=== PATIENT | female | born 1995 | race Caucasian/White ===

== ENCOUNTER 2023-09-27 13:09 | Emergency (ER) | payer BC, SELFPAY ==
[2023-09-27 13:42] VITALS: BP 116/71; PULSE 60; RESP 16; TEMP 36.6; O2SAT 100
--- NOTE | 2023-09-27 14:03 | ED.GENADULT ---
HPI - General Adult General Chief complaint: Upper Respiratory Infection Stated complaint: bilateral ear pain,sorethroat Time Seen by Provider: 09/27/23 14:03 Source: patient Mode of arrival: ambulatory Limitations: no limitations History of Present Illness HPI narrative: 28-year-old female patient presents to [facility] with complaints of congestion and sore throat for the past week. Denies fevers, but states has feel warm and has had some body aches. Denies any coughing, shortness of breath, abdominal pain, nausea, vomiting or diarrhea. Patient states she has been taking some [id number] generic Mucinex for her symptoms Related Data Home Medications Medication Instructions Recorded Confirmed Essure See Rx Instructions .Route .COMPLEX 09/27/23 alpha lipoic acid 200 mg tablet 200 mg PO DAILY 09/27/23 09/27/23 Allergies Allergy/AdvReac Type Severity Reaction Status Date / Time ketorolac [From Toradol] AdvReac Intermediate Swelling Verified 09/27/23 13:46 Review of Systems Review of Systems: CONSTITUTIONAL: Denies fever, positive body aches, denies chills, or sweats. EYES: Denies visual changes, redness, or discharge. ENT: positive rhinorrhea, congestion, sore throat, denies otalgia. CARDIOVASCULAR: Denies chest pain, palpitations, or edema. RESPIRATORY: Denies cough or dyspnea. GASTROINTESTINAL: Denies abdominal pain, nausea, vomiting, or diarrhea. GENITOURINARY: Denies dysuria or hematuria. SKIN: Denies rash or itching. MUSCULOSKELETAL: Denies back pain, joint pain, or myalgia. NEUROLOGIC: positive headache, denies numbness, or weakness. PSYCHIATRIC: Denies anxiety or depression. [facility] Family History Family History Other Diabetes mellitus Family history of malignant neoplasm Hypertension Social History Social History Second hand tobacco smoke exposure: No Alcohol intake: never Course Course Emergency Course: portions of this chart have been completed by voice recognition software Level of Care: [facility] Visit Vital Signs Vital signs: Vital Signs Temperature 36.6 C 09/27/23 13:42 Pulse Rate 60 09/27/23 13:42 Respiratory Rate 16 09/27/23 13:42 Blood Pressure 116/71 09/27/23 13:42 Pulse Oximetry 100 09/27/23 13:42 Oxygen Delivery Room Air 09/27/23 13:42 Temperature 36.6 C 09/27/23 13:42 Pulse Rate 60 09/27/23 13:42 Respiratory Rate 16 09/27/23 13:42 Blood Pressure 116/71 09/27/23 13:42 Pulse Oximetry 100 09/27/23 13:42 Oxygen Delivery Room Air 09/27/23 13:42 vital signs reviewed. Medical Decision Making MDM Narrative Medical decision making narrative: Discussed with patient that her rapid strep test today is negative. We will send to the lab for a culture if the culture comes back positive we will call her in an antibiotic at that time. Discussed with patient I do not see any evidence of need for antibiotic today. We will discharge her home with a daily antihistamine and nasal steroid for the congestion and sinus pressure. Differential Diagnosis Differential Diagnosis: Differential diagnosis: Allergic rhinitis, chronic sinusitis, tonsillitis, acute sinusitis, infectious mononucleosis, seasonal influenza, pertussis, diphtheria, meningococcal disease, viral syndrome, viral bronchitis, RSV, COVID-19 Vital Signs Vital Signs: Vital Signs Temperature 36.6 C 09/27/23 13:42 Pulse Rate 60 09/27/23 13:42 Respiratory Rate 16 09/27/23 13:42 Blood Pressure 116/71 09/27/23 13:42 Pulse Oximetry 100 09/27/23 13:42 Oxygen Delivery Room Air 09/27/23 13:42 Temperature 36.6 C 09/27/23 13:42 Pulse Rate 60 09/27/23 13:42 Respiratory Rate 16 09/27/23 13:42 Blood Pressure 116/71 09/27/23 13:42 Pulse Oximetry 100 09/27/23 13:42 Oxygen Delivery Room Air 09/27/23 13:42 Lab Data L
== END 2023-09-27 14:06 | disposition home or self-care (01) ==
PROVIDERS: Emergency Provider Nurse Practitioner Family
DX: J06.9 Acute upper respiratory infection, unspecified (principal)
CPT/HCPCS: 87081; 87880; 99213; G0463

== ENCOUNTER 2024-03-02 15:29 | Outpatient (CLI) | payer BC, SELFPAY ==
--- NOTE | ~2024-03-02 | US_ITS ---
EXAMINATION: US renal BI DATE: 03/02/2024 15:51 INDICATION: Cystinuria TECHNIQUE: Multiple ultrasound grayscale images of the kidneys were obtained. COMPARISON: None. FINDINGS: The right kidney measures 10.5 x 4.2 x 4.1 cm. The left kidney measures 11.7 x 3.9 x 4.5 cm. The kidn eys demonstrate normal echogenicity. Twinkle artifact associated with multiple echogenic stones/calci fications at both kidneys. There is no hydronephrosis in either kidney. The bladder is normal. IMPRESSION: 1. Bilateral nephrolithiasis with no hydronephrosis. Reviewed, dictated and finalized at location A.
--- NOTE | ~2024-03-02 | XR_ITS ---
EXAMINATION: XR abdomen/kub 1V DATE: 03/02/2024 16:05 INDICATION: Cystinuria. TECHNIQUE: A supine view of the abdomen on 2 radiographs was obtained. COMPARISON: None. FINDINGS: There are no dilated loops of bowel. Calcifications in the pelvis are likely phleboliths. A 5 mm calcification overlies left kidney. There are inserts in the expected area of the fallopian tub es. IMPRESSION: 1. 5 mm left kidney stone. Reviewed, dictated and finalized at location E. IMPRESSION: 1. 5 mm left kidney stone.
== END 2024-03-02 15:30 ==
DX: N20.0 Calculus of kidney (principal)
CPT/HCPCS: 74018; 76775

== ENCOUNTER 2024-10-03 11:37 | Observation (INO) | payer BC, SELFPAY ==
--- NOTE | ~2024-10-03 | XR_ITS ---
EXAMINATION: XR abdomen/kub 1V DATE: 10/04/2024 08:01 INDICATION: Left ureteral stone. TECHNIQUE: A supine view of the abdomen on 2 radiographs was obtained. COMPARISON: CT abdomen and pelvis 10/03/2024 FINDINGS: There are no dilated loops of bowel. There are phleboliths in the pelvis. There are inserts in the fallopian tubes. The kidneys are obscured by bowel. There is a 2 mm stone in right kidney. IMPRESSION: 1. 2 mm stone in right kidney. Reviewed, dictated and finalized at location A. L MAKER
--- NOTE | ~2024-10-03 | XR_ITS ---
EXAMINATION: XR retrograde pyelogram LT DATE: 10/04/2024 11:34 INDICATION: Left-sided retrograde pyelogram TECHNIQUE: A total of 49 fluoroscopic images of the abdomen were obtained during procedure performed by Dr. Sher. Radiologist was not present for the imaging or procedure. The amount of fluoroscopy ti me used during this procedure was 0.7 minutes. Total DAP was mGycm^2 COMPARISON: KUB dated 10/04/2024 FINDINGS: Images demonstrate a catheter advanced to the level of the left ureteropelvic junction. The stone pre viously seen at the left ureteropelvic junction is not visualized and may have been extracted. Correl ate with procedure note for further detail. Contrast injection into the right renal collecting system demonstrates persistent mild hydronephrosis but no evident urothelial irregularities. IMPRESSION: 1. Persistent mild left hydronephrosis. Reviewed, dictated and finalized at location A. TIONSHIP BANKER
--- NOTE | ~2024-10-03 | CT_ITS ---
EXAMINATION: CT abdomen pelvis wo con DATE: 10/03/2024 15:20 INDICATION: L flank, LLQ pain TECHNIQUE: Computed tomography (CT) of the abdomen and pelvis was performed without intravenous contr ast. Automated exposure control and iterative reconstruction technique were employed. The dose-length product was 388.60 mGy-cm. COMPARISON: None. FINDINGS: Lower thorax: Unremarkable Liver: Normal. Biliary/Gallbladder: Gallbladder is normal. No bile duct dilation. Pancreas: No mass or duct dilation. Spleen: Scattered granulomatous calcifications. Adrenals:No mass. Kidneys: No suspicious mass. Mild left pelviectasis and caliectasis. 4 mm left UPJ stone. Multiple no nobstructing bilateral renal calcifications measuring up to 7 mm in the left midpole. GI tract: No small or large bowel dilation. Normal appendix. Mesentery/Peritoneum: No ascites, mass, or free air. Retroperitoneum: No mass. Pelvis: Pelvic organs are within normal limits. Bilateral tubal ligation clips. Soft Tissues: Soft tissues and body wall unremarkable. Bones: No acute osseous finding. IMPRESSION: 4 mm left UPJ stone causing mild obstructive uropathy. Reviewed, dictated and finalized at location K. NICS SYSTEMS REPAIRER
[2024-10-03 11:39] VITALS: BP 115/72; PULSE 93; RESP 16; TEMP 36.8; O2SAT 100
--- NOTE | 2024-10-03 12:44 | ED_ITS ---
HPI - Abdominal Pain General Chief Complaint: Abdominal Pain <FLORES Smyth Last Filed: 10/03/24 12:48> Stated Complaint: left lower abd pain <Padma Londono PA-C - Last Filed: 10/03/24 12:48> Time Seen by Provider: 10/03/24 12:44 <FLORES Smyth Last Filed: 10/03/24 12:48> Focused HPI: Patient is a 29y/o female who presents to the ED with c/o L flank/abd pain. Patient has hx of cystinuria with chronic kidney stones. Patient developed worsening pain in her L flank region/lateral abdomen since last night. Pain radiates around to L lower abdomen. Reports N/V related to the pain. Tried taking oxycodone this morning but was unable to keep this down. Is on tamsulosin and oxybutyin. Does not currently have a urologist as she recently moved to the area. Denies dysuria, hematuria, fevers. GENERAL: Mildly uncomfortable-appearing, obese with BMI of 30.2, and in no acute distress. HEAD: Normocephalic, atraumatic. CHEST: Clear to auscultation. ?No respiratory distress. HEART: Regular rate and rhythm.? ABD: TTP in LLQ, L lower lateral abdomen. NEURO: ?Alert and oriented x3. Patient screened in triage and initial orders placed.? ?Additional care and disposition to be based upon?diagnostic testing and treatment. <Padma Londono PA-C - Last Filed: 10/03/24 12:48> Source: patient <Padma Londono PA-C - Last Filed: 10/03/24 12:48> Mode of arrival: ambulatory <FLORES Smyth Last Filed: 10/03/24 12:48> Limitations: no limitations <FLORES Smyth Last Filed: 10/03/24 12:48> History of Present Illness HPI narrative: Agree with above. <Tata Dumont MD - Last Filed: 10/03/24 20:40> Related Data Home Medications: Home Medications Medication Instructions Recorded Confirmed Essure See Rx Instructions .Route .COMPLEX 09/27/23 10/03/24 alpha lipoic acid 200 mg tablet 1,200 mg PO DAILY 09/27/23 10/03/24 fluticasone propionate 50 2 spray intranasal DAILY PRN 10/03/24 10/03/24 mcg/actuation nasal allergies spray,suspension (Flonase Allergy Relief) <Padma Londono PA-C - Last Filed: 10/03/24 12:48> Allergies/Adverse Reactions: Allergies Allergy/AdvReac Type Severity Reaction Status Date / Time ketorolac [From Toradol] AdvReac Intermediate Swelling Verified 10/03/24 20:12 <Padma Londono PA-C - Last Filed: 10/03/24 12:48> Review of Systems Review of Systems: All systems reviewed & are unremarkable except as noted in HPI and below <Tata Dumont MD - Last Filed: 10/03/24 20:40> [facility] Past Medical History Medical History: Medical History (Updated 10/03/24 @ 18:45 by Tata Dumont MD) Cystinuria Kidney stones <Padma Londono PA-C - Last Filed: 10/03/24 12:48> Surgical History Surgical History: Surgical History (Updated 10/03/24 @ 18:15 by Chiquita Chambers PA-C) History of cystoscopy History of ureter stent <Padma Londono PA-C - Last Filed: 10/03/24 12:48> Family History Family History: Family History Other Diabetes mellitus Family history of malignant neoplasm Hypertension <Padma Londono PA-C - Last Filed: 10/03/24 12:48> Social History Social History: Social History (Updated 10/03/24 @ 18:16 by Chiquita Chambers PA-C) Social History: Surrogate medical decision maker: Code status: Full code. Years smoked: 2 Smoking status: Former smoker Tobacco type: e-cigarettes/vaping Second hand tobacco smoke exposure: No Alcohol intake: never Substance use: never Do You Feel Safe in your Home?: Yes Lack of Transportation: No Lack of Food: Sometimes True Current Housing: I Have Housing Concerned About Future Housing: No Difficulty Paying Gas/Electric Bills: No Difficulty Paying for Meds: No Currently Unemployed: No Education: Associate Degree Difficulty w/ Childcare or Family Care: No Spiritual care concerns: No <Padma Londono PA-C - Last Filed: 10/03/24 12:48> Exam Narrative: GENERAL: distressed 2/2 pain HEAD: Normocephalic, atraumatic. EYES: PERRLA and EOMI. ENT: Grossly unremarkable NECK: Supple. CHEST: No respiratory distress. HEART: Regular rate and rhythm ABDOMEN: Soft, +LLQ tenderness w/o guarding or rebound EXTREMITIES: Normal range of motion SKIN: Warm, dry, no rash. NEURO: Alert and oriented x3. PSYCH: Normal mood and affect. <Tata Dumont MD - Last Filed: 10/03/24 20:40> Course Vital Signs Vital signs: Vital Signs Temperature 98.2 F 10/03/24 11:39 Pulse Rate 93 10/03/24 11:39 Respiratory Rate 16 10/03/24 11:39 Blood Pressure 115/72 10/03/24 11:39 Pulse Oximetry 100 10/03/24 11:39 Temperature 98.2 F 10/03/24 20:33 Pulse Rate 92 10/03/24 20:33 Respiratory Rate 20 10/03/24 20:33 Blood Pressure 115/79 10/03/24 20:33 Pulse Oximetry 99 10/03/24 20:33 <Padma Londono PA-C - Last Filed: 10/03/24 12:48> Vital Signs Temperature 98.2 F 10/03/24 11:39 Pulse Rate 93 10/03/24 11:39 Respiratory Rate 16 10/03/24 11:39 Blood Pressure 115/72 10/03/24 11:39 Pulse Oximetry 100 10/03/24 11:39 Temperature 98.2 F 10/03/24 20:33 Pulse Rate 92 10/03/24 20:33 Respiratory Rate 20 10/03/24 20:33 Blood Pressure 115/79 10/03/24 20:33 Pulse Oximetry 99 10/03/24 20:33 <Tata Dumont MD - Last Filed: 10/03/24 20:40> MDM - Abdominal Pain MDM Narrative Medical decision making narrative: MSE by DULCE in triage. <Padma Londono PA-C - Last Filed: 10/03/24 12:48> MSE by DULCE in triage. 29-year-old female presenting with flank pain. Vitals are stable. Blood work is unremarkable. UA with RBCs but no evidence of infection. CT abdomen pelvis shows a left-sided 4 mm UPJ stone. Patient states that the Dilaudid has been helping at least temporarily. She has a complicated history given she has cystinuria. Feel she would benefit from admission for pain management and definitive treatment. She is agreeable this plan. I spoke with Urology who recommends NPO at midnight. I spoke with Medicine who has accepted her for admission. <Tata Dumont MD - Last Filed: 10/03/24 20:40> Differential Diagnosis Differential diagnosis: Likely abdominal pain, calculus of kidney and other (UTI, pyelonephritis ) <Tata Dumont MD - Last Filed: 10/03/24 20:40> Medical Records Attestation: I reviewed the patient's medical records. <Tata Dumont MD - Last Filed: 10/03/24 20:40> Lab Data Attestation: I reviewed the patient's lab results. <Tata Dumont MD - Last Filed: 10/03/24 20:40> Result diagrams: 10/03/24 13:14 10/03/24 13:14 <Padma Londono PA-C - Last Filed: 10/03/24 12:48> Labs: Lab Results 10/03/24 10/03/24 10/03/24 Range/Units 13:14 13:40 13:41 WBC 8.3 (4.5-10.0) K/mm3 RBC 5.07 (4.2-5.4) M/mm3 Hgb 14.9 (12.0-15.0) g/dL Hct 45.3 (37.0-47.0) % MCV 89.3 (80-100) fl MCH 29.4 (26-34) pg MCHC 32.9 (32-36) g/dl RDW 12.9 (11.5-14.5) % Plt Count 270 (150-375) k/mm3 MPV 10.8 H (7.4-10.4) fl Immature Gran % (Auto) 0.2 (0-0.5) % Neut % (Auto) 62.8 (45.5-73.1) % Lymph % (Auto) 30.7 (18.3-44.2) % [place] % (Auto) 4.1 (2.6-8.5) % Eos % (Auto) 1.8 (0-4.4) % Baso % (Auto) 0.4 (0.2-1.2) % Lymph # (Auto) 2.54 (0.9-3.2) K/mm3 [place] # (Auto) 0.3 (0.1-0.6) K/mm3 Eos # (Auto) 0.2 (0-0.3) K/mm3 Baso # (Auto) 0.0 (0.0-0.1) K/mm3 Abs Immat Gran (auto) 0.02 (0.00-0.031) K/mm3 Absolute Neuts (auto) 5.2 (1.3-6.7) K/mm3 Absolute Nucleated RBC 0.000 (0.0-0.012) K/mm3 Nucleated RBC % 0.0 (0.0-0.2) % Sodium 139 (137-145) mmol/L Potassium 3.8 (3.4-5.0) mmol/L Chloride 103 (98-107) mmol/L Carbon Dioxide 24 (22-30) mmol/L Anion Gap 12 (4-12) mmol/L BUN 17 (7-17) mg/dL Creatinine 0.90 (0.7-1.0) mg/dL Estim Creat Clear Calc 76 ml/min Estimated GFR > 60 (59 - ) Glucose 100 (65-110) mg/dL Calcium 9.7 (8.4-10.2) mg/dL Total Bilirubin 0.7 (0.2-1.3) mg/dL AST 24 (14-36) U/L ALT 16 (6-35) U/L Alkaline Phosphatase 79 (38-126) U/L Total Protein 9.0 H (6.3-8.2) g/dL Albumin 4.8 (3.5-5.1) g/dL Urine Color Yellow (Yellow) Urine Appearance Cloudy H (Clear) Urine pH 7.0 (5.0-9.0) Ur Specific [place] 1.025 (1.001-1.035) Urine Protein 1+ H (Negative) mg/dL Urine Glucose (UA) Negative (Negative) mg/dL Urine Ketones Trace H (Negative) mg/dL Ur Blood (Man) 3+ H (Negative) Urine Nitrate Negative (Negative) Urine Bilirubin Negative (Negative) Urine Urobilinogen 1.0 (<2.0) mg/dL Leukocyte Esterase Rfl Trace H (Negative) RACHEL/UL Urine RBC >100 H (0-2) /hpf Urine WBC 0-5 (0-3) /hpf Ur Squamous Epith Cells Occasional (Few) /hpf Urine Bacteria Rare /hpf Urine Casts 0-2 Urine Test Negative <Padma Londono PA-C - Last Filed: 10/03/24 12:48> Lab Results 10/03/24 10/03/24 10/03/24 Range/Units 13:14 13:40 13:41 WBC 8.3 (4.5-10.0) K/mm3 RBC 5.07 (4.2-5.4) M/mm3 Hgb 14.9 (12.0-15.0) g/dL Hct 45.3 (37.0-47.0) % MCV 89.3 (80-100) fl MCH 29.4 (26-34) pg MCHC 32.9 (32-36) g/dl RDW 12.9 (11.5-14.5) % Plt Count 270 (150-375) k/mm3 MPV 10.8 H (7.4-10.4) fl Immature Gran % (Auto) 0.2 (0-0.5) % Neut % (Auto) 62.8 (45.5-73.1) % Lymph % (Auto) 30.7 (18.3-44.2) % [place] % (Auto) 4.1 (2.6-8.5) % Eos % (Auto) 1.8 (0-4.4) % Baso % (Auto) 0.4 (0.2-1.2) % Lymph # (Auto) 2.54 (0.9-3.2) K/mm3 [place] # (Auto) 0.3 (0.1-0.6) K/mm3 Eos # (Auto) 0.2 (0-0.3) K/mm3 Baso # (Auto) 0.0 (0.0-0.1) K/mm3 Abs Immat Gran (auto) 0.02 (0.00-0.031) K/mm3 Absolute Neuts (auto) 5.2 (1.3-6.7) K/mm3 Absolute Nucleated RBC 0.000 (0.0-0.012) K/mm3 Nucleated RBC % 0.0 (0.0-0.2) % Sodium 139 (137-145) mmol/L Potassium 3.8 (3.4-5.0) mmol/L Chloride 103 (98-107) mmol/L Carbon Dioxide 24 (22-30) mmol/L Anion Gap 12 (4-12) mmol/L BUN 17 (7-17) mg/dL Creatinine 0.90 (0.7-1.0) mg/dL Estim Creat Clear Calc 76 ml/min Estimated GFR > 60 (59 - ) Glucose 100 (65-110) mg/dL Calcium 9.7 (8.4-10.2) mg/dL Total Bilirubin 0.7 (0.2-1.3) mg/dL AST 24 (14-36) U/L ALT 16 (6-35) U/L Alkaline Phosphatase 79 (38-126) U/L Total Protein 9.0 H (6.3-8.2) g/dL Albumin 4.8 (3.5-5.1) g/dL Urine Color Yellow (Yellow) Urine Appearance Cloudy H (Clear) Urine pH 7.0 (5.0-9.0) Ur Specific [place] 1.025 (1.001-1.035) Urine Protein 1+ H (Negative) mg/dL Urine Glucose (UA) Negative (Negative) mg/dL Urine Ketones Trace H (Negative) mg/dL Ur Blood (Man) 3+ H (Negative) Urine Nitrate Negative (Negative) Urine Bilirubin Negative (Negative) Urine Urobilinogen 1.0 (<2.0) mg/dL Leukocyte Esterase Rfl Trace H (Negative) RACHEL/UL Urine RBC >100 H (0-2) /hpf Urine WBC 0-5 (0-3) /hpf Ur Squamous Epith Cells Occasional (Few) /hpf Urine Bacteria Rare /hpf Urine Casts 0-2 Urine Test Negative <Tata Dumont MD - Last Filed: 10/03/24 20:40> Imaging Data Radiologist's impression: ITS Impressions Abdomen/Pelvis CT 10/03/24 15:21 IMPRESSION: 4 mm left UPJ stone causing mild obstructive uropathy. <Padma Londono PA-C - Last Filed: 10/03/24 12:48> ITS Impressions Abdomen/Pelvis CT 10/03/24 15:21 IMPRESSION: 4 mm left UPJ stone causing mild obstructive uropathy. <Tata Dumont MD - Last Filed: 10/03/24 20:40> Critical Care Time Critical Care Time Critical Care Time: No <Tata Dumont MD - Last Filed: 10/03/24 20:40> Discharge Plan Discharge Clinical Impression: Cystinuria, Left ureteral calculus <Padma Londono PA-C - Last Filed: 10/03/24 12:48> Patient Disposition: Still a Patient <Padma Londono PA-C - Last Filed: 10/03/24 12:48> Condition: Stable <Padma Londono PA-C - Last Filed: 10/03/24 12:48>
[2024-10-03] MEDS: HYDROcodone/acetaminophen (*CRX) 5-325 MG TABLET 1 TAB PO (13:08)
[2024-10-03] MEDS: ONDANSETRON INJ 4 MG/2 ML VIAL IV PUSH ×2 (13:12→17:42)
[2024-10-03] MEDS: SODIUM CHLORIDE 0.9% IV 1,000 ML 999 ML IV CONT ×2 (13:12→17:42)
[2024-10-03 13:19] LABS: Basophils Percent Auto 0.4 % (0.2-1.2); Eosinophils Absolute Auto 0.2 K/mm3 (0-0.3); Eosinophils Percent Auto 1.8 % (0-4.4); Hematocrit 45.3 % (37.0-47.0); Hemoglobin 14.9 g/dL (12.0-15.0); Immature Granulocyte Absolute 0.02 K/mm3 (0.00-0.031); Immature Granulocyte Percent A 0.2 % (0-0.5); Lymphocytes Absolute Auto 2.54 K/mm3 (0.9-3.2); Lymphocytes Percent Auto 30.7 % (18.3-44.2); Mean Corpuscular HGB Conc 32.9 g/dl (32-36); Mean Corpuscular Hemoglobin 29.4 pg (26-34); Mean Corpuscular Volume 89.3 fl (80-100); Mean Platelet Volume 10.8 fl (7.4-10.4); Monocytes Absolute Auto 0.3 K/mm3 (0.1-0.6); Monocytes Percent Auto 4.1 % (2.6-8.5); Neutrophils Absolute Auto 5.2 K/mm3 (1.3-6.7); Neutrophils Percent Auto 62.8 % (45.5-73.1); Platelet Count Result 270 k/mm3 (150-375); Red Blood Count 5.07 M/mm3 (4.2-5.4); Red Cell Distribution Width 12.9 % (11.5-14.5); White Blood Count 8.3 K/mm3 (4.5-10.0)
[2024-10-03 13:33] LABS: Alanine Aminotransferase 16 U/L (6-35); Albumin Level 4.8 g/dL (3.5-5.1); Alkaline Phosphatase 79 U/L (38-126); Anion Gap 12 mmol/L (4-12); Aspartate Amino Transferase 24 U/L (14-36); Bilirubin,Total 0.7 mg/dL (0.2-1.3); Blood Urea Nitrogen 17 mg/dL (7-17); Calcium 9.7 mg/dL (8.4-10.2); Carbon Dioxide 24 mmol/L (22-30); Chloride 103 mmol/L (98-107); Estimated CRCL calculation 76 ml/min; Estimated Glomerular Filt Rate > 60; Glucose 100 mg/dL (65-110); Potassium 3.8 mmol/L (3.4-5.0); Sodium 139 mmol/L (137-145)
[2024-10-03 13:52] LABS: Add Urine Microscopic? YES; Appearance Urine Cloudy (Clear); Bacteria Urine Rare /hpf; Bilirubin Urine Negative (Negative); Blood Urine 3+ (Negative); Color Urine Yellow (Yellow); Glucose Urine UA Negative (Negative); Ketones Urine Trace mg/dL (Negative); Leukocyte Esterase Ur Trace LEU/UL (Negative); Nitrate Urine Negative (Negative); Non Pathogenic Casts 0-2; Protein Urine 1+ mg/dL (Negative); RBC Urine >100 /hpf (0-2); Specific Grav Ur 1.025 (1.001-1.035); Squamous Epithelial Cell Urine Occasional /hpf (Few); WBC Urine 0-5 /hpf (0-3)
[2024-10-03] MEDS: HYDROmorphone HCL INJ (*CRX) 1 MG/ML SYR 0.5 MG IV PUSH ×3 (14:34→19:24)
[2024-10-03 15:07] LABS: Pregnancy On Board Control Positive; Urine Pregnancy Test Negative
[2024-10-03 16:33] VITALS: BP 123/83; PULSE 93; RESP 19; O2SAT 97
--- NOTE | 2024-10-03 18:15 | P.HP_ITS ---
H&P: HPI History of Present Illness Date/Time: 10/03/24 19:00 Chief Complaint: Left flank pain. Narrative: This is a very pleasant 29-year-old female with cystinuria and history of multiple kidney stones who presented to the emergency department for evaluation of left-sided flank pain.? The patient provides the following history. She just recently moved to the area from [place] and does not yet have an established urologist. Last evening she developed fairly sudden onset of colicky, left-sided flank pain similar to prior kidney stones. The pain radiates down into the lower abdomen/groin. Associated symptoms include nausea and vomiting. She attempted to take oxycodone this morning but was unable to keep it down. No fever, chills, sweats, dysuria, or hematuria. In the ED: She was afebrile on arrival with stable vital signs. CMP and CBC were pretty unremarkable. Urinalysis was positive for 1+ protein, trace ketones, 3+ blood, trace leukocyte esterase, greater than 100 RBC, and rare bacteria. CT scan of the abdomen and pelvis showed a 4 mm left UVJ stone causing mild obstructive uropathy. She is being admitted in this setting for pain control and urology consultation. Review of Systems Review of Systems: 12 systems were reviewed and are negativ e except for as per HPI. [facility] Past Medical History Medical History (Updated 10/03/24 @ 21:32 by Chiquita Chambers PA-C) Cystinuria Depression with anxiety Heart failure Kidney stones Surgical History Surgical History (Updated 10/03/24 @ 21:32 by Chiquita Chambers PA-C) History of cystoscopy History of removal of calculus of renal pelvis through percutaneous nephrostomy History of ureter stent Family History Family History Other Diabetes mellitus Family history of malignant neoplasm Hypertension Social History Social History (Updated 10/03/24 @ 21:31 by Chiquita Chambers PA-C) Social History: Surrogate medical decision maker: VIRAJ Lange (fianc?) or Radha Kayden (grandmother). Code status: Full code. Years smoked: 2 Smoking status: Former smoker Tobacco type: e-cigarettes/vaping Second hand tobacco smoke exposure: No Alcohol intake: never Substance use: never Do You Feel Safe in your Home?: Yes Lack of Transportation: No Lack of Food: Sometimes True Current Housing: I Have Housing Concerned About Future Housing: No Difficulty Paying Gas/Electric Bills: No Difficulty Paying for Meds: No Currently Unemployed: No Education: Associate Degree Difficulty w/ Childcare or Family Care: No Additional living arrangements comments: Lives in [place] with baljinder and 12-year-old daughter. Spiritual care concerns: No Meds Home Medications and Allergies Home Medications Medication Instructions Recorded Confirmed Type Essure See Rx Instructions .Route .COMPLEX 09/27/23 10/03/24 History alpha lipoic acid 200 mg tablet 1,200 mg PO DAILY 09/27/23 10/03/24 History fluticasone propionate 50 2 spray intranasal DAILY PRN 10/03/24 10/03/24 History mcg/actuation nasal allergies spray,suspension (Flonase Allergy Relief) Allergies Allergy/AdvReac Type Severity Reaction Status Date / Time ketorolac [From Toradol] AdvReac Intermediate Swelling Verified 10/03/24 20:12 Vital Signs Vital Signs - 24 hr 10/03/24 11:39 10/03/24 16:33 Temperature 98.2 F Pulse Rate 93 93 Respiratory Rate 16 19 Blood Pressure 115/72 123/83 Pulse Oximetry 100 97 Exam Narrative: General: Well-developed female sitting up in bed in moderate pain. Weight: 76.7 kg. BMI: 30.9. HEENT: PERRL, EOMI. Sclera anicteric. Tacky mucous membranes. Neck: Supple. Respiratory: Lungs are clear to auscultation bilaterally. Cardiovascular: Regular rate and rhythm with S1-S2. Gastrointestinal: Abdomen is soft and nondistended with positive bowel sounds. She is tender to palpation over the left flank and the left lower quadrant. Skin: Warm and dry. Extremities: No cyanosis, clubbing, or edema. Radial and pedal pulses intact. Neurological: Alert. Cranial nerves 2-12 are grossly intact. No gross focal deficits to casual conversation. Psychiatric: Pleasant and cooperative with normal mood and affect. Judgment and insight intact. H&P: Results Labs Labs: Short CBC 10/03/24 Range/Units 13:14 WBC 8.3 (4.5-10.0) K/mm3 Hgb 14.9 (12.0-15.0) g/dL Hct 45.3 (37.0-47.0) % Plt Count 270 (150-375) k/mm3 BMP 10/03/24 13:14 Sodium 139 Potassium 3.8 Chloride 103 Carbon Dioxide 24 BUN 17 Creatinine 0.90 Glucose 100 Calcium 9.7 Liver Function 10/03/24 Range/Units 13:14 Total Bilirubin 0.7 (0.2-1.3) mg/dL AST 24 (14-36) U/L ALT 16 (6-35) U/L Alkaline Phosphatase 79 (38-126) U/L Albumin 4.8 (3.5-5.1) g/dL Urine 10/03/24 Range/Units 13:41 Urine Color Yellow (Yellow) Urine Appearance Cloudy H (Clear) Urine pH 7.0 (5.0-9.0) Ur Specific [place] 1.025 (1.001-1.035) Urine Protein 1+ H (Negative) mg/dL Urine Glucose (UA) Negative (Negative) mg/dL Impressions Abdomen/Pelvis CT 10/03/24 15:21 IMPRESSION: 1. 4 mm left UPJ stone causing mild obstructive uropathy. Assessment and Plan Assessment and plan (1) Left ureteral calculus: Code(s): N20.1 - Calculus of ureter Status: Acute (2) Obstructive uropathy: Code(s): N13.9 - Obstructive and reflux uropathy, unspecified Status: Acute (3) Cystinuria: Code(s): E72.01 - Cystinuria Status: Acute Plan The patient presented to the emergency department for evaluation of colicky left-sided flank pain since last evening as detailed in HPI. Labs, imaging, EKG, and all reports were personally reviewed. She has cystinuria with history of frequent kidney stones and CT scan today showed a 4 mm UPJ stone with mild obstructive uropathy. She is being admitted overnight for pain control.? Analgesics and antiemetics are available as needed. Dr. Ybarra plans for cystoscopy tomorrow and she will be NPO after midnight. Vital signs were reviewed and they are stable. Her home medications will be reviewed and resumed as appropriate. Findings and treatment plan were discussed with the patient. Questions were solicited and answered to satisfaction. The patient's medical management will be taken over by the hospitalist team in a.m. Quality VTE Prophylaxis VTE prophylaxis: mechanical ordered If No VTE Prophylaxis Answer both mechanical and pharmacologic: Reason no pharmacologic proph: medical contraindication (plans for cystoscopy tomorrow) The patient has been admitted under observation status. Hospitalist MIPS Advance Care Plan I have confirmed that the patient's Advanced Care Plan is present, code status is documented, or surrogate decision maker is listed in patient medical record.: Yes Medication Reconciliation I have utilized all available resources to obtain, update and review the patients current medications (includes all prescriptions, OTC, herbals, ca nnabis, and nutritional supplements).: Yes
[2024-10-03 19:33] VITALS: BP 120/75; PULSE 85; RESP 16; TEMP 36.4; O2SAT 98
[2024-10-03 20:06] VITALS: BMI 30.9
--- NOTE | 2024-10-03 20:07 | ADMGEN ---
This patient, Yesenia Yip, was admitted to [facility] Surg Room 307-01. Patient/family oriented to hospital policies and general routines including ID bracelet, bed and alarms, visiting hours, pain management, procedures, bathroom and other care routines, personal items, smoking policy, room service/diet, and visiting hours. Information on how to activate the Rapid Response Team has been discussed. Patient/Family are encouraged to report perceived risks to care and to ask questions if they do not understand what they are told or what they should do.
--- NOTE | 2024-10-03 20:16 | ADMGEN ---
This patient, Yesenia Yip, was admitted to [facility] Surg Room 307-01. Patient/family oriented to hospital policies and general routines including ID bracelet, bed and alarms, visiting hours, pain management, procedures, bathroom and other care routines, personal items, smoking policy, room service/diet, and visiting hours. Information on how to activate the Rapid Response Team has been discussed. Patient/Family are encouraged to report perceived risks to care and to ask questions if they do not understand what they are told or what they should do.
[2024-10-03 20:33] VITALS: BP 115/79; PULSE 92; RESP 20; TEMP 36.8; O2SAT 99
[2024-10-03] MEDS: PROMETHAZINE HCL 25 MG/ML AMPUL 12.5 MG IV PUSH (20:41)
[2024-10-04] VITALS (10 sets, daily range): BP systolic 98–116; BP diastolic 52–85; PULSE 61–108; RESP 7–20; TEMP 36.4–37.1; O2SAT 94–100
[2024-10-04] MEDS: HYDROmorphone HCL INJ (*CRX) 1 MG/ML SYR 0.5 MG IV PUSH ×4 (04:26→15:12)
--- NOTE | 2024-10-04 06:32 | WPDURCON ---
Assessment and Plan Assessment and plan (1) Left ureteral calculus: Code(s): N20.1 - Calculus of ureter Status: Acute (2) Kidney stones: Code(s): N20.0 - Calculus of kidney Status: Acute Assessment and Plan: Patient with a painful obstructing 4 mm left proximal ureteral stone. Plan cystoscopy left ureteroscopy stone extraction. Patient is traveling for the and would like to avoid placement of ureteral stent, if possible. Our efforts today will be focused stone simply removing the obstructing stone without treatment of the nonobstructing stone in her left kidney. 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 She presents with left flank pain. Imaging demonstrates an obstructing 4 mm left proximal ureteral stone. Additionally she has a 5-6 mm nonobstructing stone in the left midpole calyx and a tiny stone in her right kidney. She was admitted for hydration analgesics. She denies fevers chills or gross hematuria. Review of Systems Review of Systems: All systems reviewed & are unremarkable except as noted in HPI and below PMFSH Past Medical History Medical History (Updated 10/03/24 @ 21:32 by Chiquita Chambers PA-C) Cystinuria Depression with anxiety Heart failure Kidney stones Surgical History Surgical History (Updated 10/03/24 @ 21:32 by Chiquita Chambers PA-C) History of cystoscopy History of removal of calculus of renal pelvis through percutaneous nephrostomy History of ureter stent Family History Family History Other Diabetes mellitus Family history of malignant neoplasm Hypertension Social History Social History (Updated 10/03/24 @ 21:31 by Chiquita Chambers PA-C) Social History: Surrogate medical decision maker: VIRAJ Lange (fianc?) or Radha Kayden (grandmother). Code status: Full code. Years smoked: 2 Smoking status: Former smoker Tobacco type: e-cigarettes/vaping Second hand tobacco smoke exposure: No Alcohol intake: never Substance use: never Do You Feel Safe in your Home?: Yes Lack of Transportation: No Lack of Food: Sometimes True Current Housing: I Have Housing Concerned About Future Housing: No Difficulty Paying Gas/Electric Bills: No Difficulty Paying for Meds: No Currently Unemployed: No Education: Associate Degree Difficulty w/ Childcare or Family Care: No Additional living arrangements comments: Lives in [place] with baljinder and 12-year-old daughter. Spiritual care concerns: No Meds Home Medications and Allergies Home Medications Medication Instructions Recorded Confirmed Type Essure See Rx Instructions .Route .COMPLEX 09/27/23 10/03/24 History alpha lipoic acid 200 mg tablet 1,200 mg PO DAILY 09/27/23 10/03/24 History fluticasone propionate 50 2 spray intranasal DAILY PRN 10/03/24 10/03/24 History mcg/actuation nasal allergies spray,suspension (Flonase Allergy Relief) Allergies Allergy/AdvReac Type Severity Reaction Status Date / Time ketorolac [From Toradol] AdvReac Intermediate Swelling Verified 10/03/24 20:12 Vital Signs Vital Signs - 24 hr 10/03/24 11:39 10/03/24 16:33 10/03/24 19:33 Temperature 98.2 F 97.5 F L Pulse Rate 93 93 85 Respiratory Rate 16 19 16 Blood Pressure 115/72 123/83 120/75 Pulse Oximetry 100 97 98 Oxygen Delivery 10/03/24 20:33 10/03/24 22:04 10/04/24 04:17 Temperature 98.2 F 97.8 F Pulse Rate 92 88 Respiratory Rate 20 20 Blood Pressure 115/79 98/52 L Pulse Oximetry 99 94 Oxygen Delivery Room Air Exam Const: General: no acute distress Resp: Effort & Inspection: normal respiratory effort GI: Inspection: non-distended GI Palp: No abdominal tenderness and No Guarding due to palpation present (GI) Auscultation: normal bowel sounds Results Labs 10/03/24 13:14 10/03/24 13:14 Labs: Short CBC 10/03/24 Range/Units 13:14 WBC 8.3 (4.5-10.0) K/mm3 Hgb 14.9 (12.0-15.0) g/dL Hct 45.3 (37.0-47.0) % Plt Count 270 (150-375) k/mm3 BMP 10/03/24 13:14 Sodium 139 Potassium 3.8 Chloride 103 Carbon Dioxide 24 BUN 17 Creatinine 0.90 Glucose 100 Calcium 9.7 Liver Function 10/03/24 Range/Units 13:14 Total Bilirubin 0.7 (0.2-1.3) mg/dL AST 24 (14-36) U/L ALT 16 (6-35) U/L Alkaline Phosphatase 79 (38-126) U/L Albumin 4.8 (3.5-5.1) g/dL Urine 10/03/24 Range/Units 13:41 Urine Color Yellow (Yellow) Urine Appearance Cloudy H (Clear) Urine pH 7.0 (5.0-9.0) Ur Specific [place] 1.025 (1.001-1.035) Urine Protein 1+ H (Negative) mg/dL Urine Glucose (UA) Negative (Negative) mg/dL
--- NOTE | 2024-10-04 09:05 | WPDHPUPDATE1 ---
History and Physical Update Update Date/Time: 10/04/24 09:05 History and Physical has been reviewed, including an updated exam of the patient. There are NO changes in the patient's condition. Risks, benefits, and alternatives have been discussed and questions answered. Patient agrees to proceed with procedure.
[2024-10-04 09:11] LABS: Basophils Absolute Auto 0.1 K/mm3 (0.0-0.1); Basophils Percent Auto 0.5 % (0.2-1.2); Eosinophils Absolute Auto 0.1 K/mm3 (0-0.3); Eosinophils Percent Auto 0.8 % (0-4.4); Hematocrit 35.6 % (37.0-47.0); Hemoglobin 11.4 g/dL (12.0-15.0); Immature Granulocyte Absolute 0.05 K/mm3 (0.00-0.031); Immature Granulocyte Percent A 0.5 % (0-0.5); Lymphocytes Absolute Auto 2.75 K/mm3 (0.9-3.2); Lymphocytes Percent Auto 26.9 % (18.3-44.2); Mean Corpuscular Hemoglobin 29.2 pg (26-34); Mean Platelet Volume 10.2 fl (7.4-10.4); Monocytes Absolute Auto 0.6 K/mm3 (0.1-0.6); Monocytes Percent Auto 5.9 % (2.6-8.5); Neutrophils Absolute Auto 6.7 K/mm3 (1.3-6.7); Neutrophils Percent Auto 65.4 % (45.5-73.1); Platelet Count Result 257 k/mm3 (150-375); Red Blood Count 3.91 M/mm3 (4.2-5.4); White Blood Count 10.2 K/mm3 (4.5-10.0)
[2024-10-04 09:28] LABS: Alanine Aminotransferase 12 U/L (6-35); Albumin Level 3.5 g/dL (3.5-5.1); Alkaline Phosphatase 60 U/L (38-126); Anion Gap 5 mmol/L (4-12); Aspartate Amino Transferase 21 U/L (14-36); Bilirubin,Total 0.6 mg/dL (0.2-1.3); Blood Urea Nitrogen 15 mg/dL (7-17); Calcium 8.7 mg/dL (8.4-10.2); Carbon Dioxide 28 mmol/L (22-30); Chloride 106 mmol/L (98-107); Estimated CRCL calculation 77 ml/min; Estimated Glomerular Filt Rate > 60; Glucose 81 mg/dL (65-110); Potassium 3.7 mmol/L (3.4-5.0); Sodium 139 mmol/L (137-145)
--- NOTE | 2024-10-04 09:50 | PC.NURSE ---
To preop via wheelchair.
[2024-10-04] MEDS: LACTATED RINGERS 1,000 ML 30 ML IV CONT (10:38)
--- NOTE | 2024-10-04 10:41 | WPDANESEPPF ---
Anes - Initial Pre Proc Eval Procedure: Operation Date: 10/04/24 11:00 Proposed Procedures p Cystoscopy,Left Retrograde Pyelogram, Left Ureteroscopy, Left Stone Extraction,Possible Holmium Laser, Possible Stent Placement - Narciso Sher MD Date/Time: 10/04/24 10:41 Surgeon: Luis Chery MD Pre Op Diagnosis: Left UPJ Stone Patient Data Age: 29 Gender: F Height: 1.57 m Weight: 76.7 kg Last Vital Signs Temp 97.8 F 10/04/24 10:10 Pulse 61 10/04/24 10:10 Resp 16 10/04/24 10:10 BP 108/52 L 10/04/24 10:10 Pulse Ox 95 10/04/24 10:10 O2 Del Method Room Air 10/04/24 08:20 Allergies Allergy/AdvReac Type Severity Reaction Status Date / Time ketorolac [From Toradol] AdvReac Intermediate Swelling Verified 10/03/24 20:12 Home Medications Medication Instructions Recorded Confirmed Type Essure See Rx Instructions .Route .COMPLEX 09/27/23 10/03/24 History alpha lipoic acid 200 mg tablet 1,200 mg PO DAILY 09/27/23 10/03/24 History fluticasone propionate 50 2 spray intranasal DAILY PRN 10/03/24 10/03/24 History mcg/actuation nasal allergies spray,suspension (Flonase Allergy Relief) Laboratory Tests 10/03/24 10/03/24 10/03/24 13:14 13:40 13:41 WBC 8.3 K/mm3 (4.5-10.0) RBC 5.07 M/mm3 (4.2-5.4) Hgb 14.9 g/dL (12.0-15.0) Hct 45.3 % (37.0-47.0) MCV 89.3 fl (80-100) MCH 29.4 pg (26-34) MCHC 32.9 g/dl (32-36) RDW 12.9 % (11.5-14.5) Plt Count 270 k/mm3 (150-375) MPV 10.8 H fl (7.4-10.4) Immature Gran % (Auto) 0.2 % (0-0.5) Neut % (Auto) 62.8 % (45.5-73.1) Lymph % (Auto) 30.7 % (18.3-44.2) [place] % (Auto) 4.1 % (2.6-8.5) Eos % (Auto) 1.8 % (0-4.4) Baso % (Auto) 0.4 % (0.2-1.2) Lymph # (Auto) 2.54 K/mm3 (0.9-3.2) [place] # (Auto) 0.3 K/mm3 (0.1-0.6) Eos # (Auto) 0.2 K/mm3 (0-0.3) Baso # (Auto) 0.0 K/mm3 (0.0-0.1) Abs Immat Gran (auto) 0.02 K/mm3 (0.00-0.031) Absolute Neuts (auto) 5.2 K/mm3 (1.3-6.7) Absolute Nucleated RBC 0.000 K/mm3 (0.0-0.012) Nucleated RBC % 0.0 % (0.0-0.2) Sodium 139 mmol/L (137-145) Potassium 3.8 mmol/L (3.4-5.0) Chloride 103 mmol/L (98-107) Carbon Dioxide 24 mmol/L (22-30) Anion Gap 12 mmol/L (4-12) BUN 17 mg/dL (7-17) Creatinine 0.90 mg/dL (0.7-1.0) Estim Creat Clear Calc 76 ml/min Estimated GFR > 60 (59 - ) Glucose 100 mg/dL (65-110) Calcium 9.7 mg/dL (8.4-10.2) Total Bilirubin 0.7 mg/dL (0.2-1.3) AST 24 U/L (14-36) ALT 16 U/L (6-35) Alkaline Phosphatase 79 U/L (38-126) Total Protein 9.0 H g/dL (6.3-8.2) Albumin 4.8 g/dL (3.5-5.1) Urine Color Yellow (Yellow) Urine Appearance Cloudy H (Clear) Urine pH 7.0 (5.0-9.0) Ur Specific [place] 1.025 (1.001-1.035) Urine Protein 1+ H mg/dL (Negative) Urine Glucose (UA) Negative mg/dL (Negative) Urine Ketones Trace H mg/dL (Negative) Ur Blood (Man) 3+ H (Negative) Urine Nitrate Negative (Negative) Urine Bilirubin Negative (Negative) Urine Urobilinogen 1.0 mg/dL (<2.0) Leukocyte Esterase Rfl Trace H RACHEL/UL (Negative) Urine RBC >100 H /hpf (0-2) Urine WBC 0-5 /hpf (0-3) Ur Squamous Epith Cells Occasional /hpf (Few) Urine Bacteria Rare /hpf Urine Casts 0-2 Urine Test Negative 10/04/24 08:45 WBC 10.2 H K/mm3 (4.5-10.0) RBC 3.91 L M/mm3 (4.2-5.4) Hgb 11.4 L D g/dL (12.0-15.0) Hct 35.6 L % (37.0-47.0) MCV 91.0 fl (80-100) MCH 29.2 pg (26-34) MCHC 32.0 g/dl (32-36) RDW 13.0 % (11.5-14.5) Plt Count 257 k/mm3 (150-375) MPV 10.2 fl (7.4-10.4) Immature Gran % (Auto) 0.5 % (0-0.5) Neut % (Auto) 65.4 % (45.5-73.1) Lymph % (Auto) 26.9 % (18.3-44.2) [place] % (Auto) 5.9 % (2.6-8.5) Eos % (Auto) 0.8 % (0-4.4) Baso % (Auto) 0.5 % (0.2-1.2) Lymph # (Auto) 2.75 K/mm3 (0.9-3.2) [place] # (Auto) 0.6 K/mm3 (0.1-0.6) Eos # (Auto) 0.1 K/mm3 (0-0.3) Baso # (Auto) 0.1 K/mm3 (0.0-0.1) Abs Immat Gran (auto) 0.05 H K/mm3 (0.00-0.031) Absolute Neuts (auto) 6.7 K/mm3 (1.3-6.7) Absolute Nucleated RBC 0.000 K/mm3 (0.0-0.012) Nucleated RBC % 0.0 % (0.0-0.2) Sodium 139 mmol/L (137-145) Potassium 3.7 mmol/L (3.4-5.0) Chloride 106 mmol/L (98-107) Carbon Dioxide 28 mmol/L (22-30) Anion Gap 5 mmol/L (4-12) BUN 15 mg/dL (7-17) Creatinine 0.90 mg/dL (0.7-1.0) Estim Creat Clear Calc 77 ml/min Estimated GFR > 60 (59 - ) Glucose 81 mg/dL (65-110) Calcium 8.7 mg/dL (8.4-10.2) Total Bilirubin 0.6 mg/dL (0.2-1.3) AST 21 U/L (14-36) ALT 12 U/L (6-35) Alkaline Phosphatase 60 U/L (38-126) Total Protein 7.0 g/dL (6.3-8.2) Albumin 3.5 g/dL (3.5-5.1) Urine Color Urine Appearance Urine pH Ur Specific [place] Urine Protein Urine Glucose (UA) Urine Ketones Ur Blood (Man) Urine Nitrate Urine Bilirubin Urine Urobilinogen Leukocyte Esterase Rfl Urine RBC Urine WBC Ur Squamous Epith Cells Urine Bacteria Urine Casts Urine Test Patient hx anesthesia problems: none Family hx anesthesia problems: none Results Review: All pre-operative results and documents have been reviewed as part of the pre-operative evaluation. [facility] Past Medical History Medical History Cystinuria Depression with anxiety Heart failure Kidney stones Surgical History Surgical History History of cystoscopy History of removal of calculus of renal pelvis through percutaneous nephrostomy History of ureter stent Family History Family History Other Diabetes mellitus Family history of malignant neoplasm Hypertension Social History Social History Social History: Surrogate medical decision maker: VIRAJ Lange (fianc?) or Radha Young (grandmother). Code status: Full code. Years smoked: 2 Smoking status: Former smoker Tobacco type: e-cigarettes/vaping Second hand tobacco smoke exposure: No Alcohol intake: never Substance use: never Do You Feel Safe in your Home?: Yes Lack of Transportation: No Lack of Food: Sometimes True Current Housing: I Have Housing Concerned About Future Housing: No Difficulty Paying Gas/Electric Bills: No Difficulty Paying for Meds: No Currently Unemployed: No Education: Associate Degree Difficulty w/ Childcare or Family Care: No Additional living arrangements comments: Lives in [place] with baljinder and 12-year-old daughter. Spiritual care concerns: No Anes - Eval Final PreProcedure Day of Procedure 10/04/24 10:41 Patient weight: overweight Heart: regular rate and rhythm Lungs: clear to auscultation Airway: Mallampati scale class II Neurological: alert and oriented Last oral intake: >/= 8 hours ASA classification: II Emergent: no Anesthetic plan: proceed Anesthesia type and monitoring: general LMA and standard monitoring Results Review: All pre-operative results and documents have been reviewed as part of the pre-operative evaluation. Hx of depression/anxiety by hx. Peripartum cardiomyopathy 2013, pt states that she was not even hospitalized and recovered fully. Typically can walk 1-2 fos, no cp or sob. Informed Consent: The patient's anesthetic plan and its attendant risks and benefits were discussed with the patient/family/POA. Questions were solicited and answers provided to the satisfaction of the patient/family/POA.
--- NOTE | 2024-10-04 11:26 | W.PM.PROC2 ---
Procedure Note - Detailed Date of Procedure 10/04/24 Pre-op Diagnosis Left UPJ Stone Post-op Diagnosis Same Procedure Performed Cystoscopy, left retrograde pyelography, left ureteroscopy with stone extraction Surgeon Narciso Sher MD Anesthesia General Description of Procedure Patient is brought to the operative suite she has prepped and draped in routine sterile fashion while in dorsal lithotomy position after the uneventful induction of a general LMA anesthetic. Cystoscopy was undertaken with a 19 F rigid cystoscope. Bladder neck and urethra endoscopically normal. Bladder mucosa is normal. No intravesical foreign body or neoplasm. She has a single orthotopic ureteral orifice bilaterally. A 0.035 in glidewire was advanced into her left renal pelvis and the distal ureter was dilated with an 8 F 10 F dilator. Ureteroscopy was the 1st undertaken with a semi-rigid ureteral scope to the iliac vessels. There are no distal ureteral stones. I then exchanged that for a 7.5 F flexible ureteral scope. Retrograde pyelography was performed to ensure inspection of all calices. She has 1 small stone which is likely gone retrograde with irrigation back into her kidney. It is extracted with a 1.9 F disposable stone basket with ease. She then has a collection of tiny fragments in a mid pole calyx which is the likely stone identified on CT imaging. There are no additional stones in her left kidney greater than 2 mm size. Because of the ease of this manipulation I opted not to place ureteral stent. Scopes and wires were removed. She tolerated the procedure well. Drains No Packing No Pathology Yes Complications No immediate complications Condition Stable
[2024-10-04] MEDS: fentaNYL CITRATE INJ (*CRX) 100 MCG/2 ML VIAL 25 MCG IV PUSH ×4 (11:57→12:08)
--- NOTE | 2024-10-04 12:30 | PC.NURSE ---
Back from OR via stretcher.
--- NOTE | 2024-10-04 16:39 | P.DS_ITS ---
DS: Admitting Diagnosis Discharge Date 10/04/24 Admitting Diagnosis Abdominal pain DS: Discharge Diagnosis Discharge Diagnosis (1) Left ureteral calculus: Code(s): N20.1 - Calculus of ureter Status: Acute (2) Cystinuria: Code(s): E72.01 - Cystinuria Status: Acute DS: Summary Hospital Course Hospital Course: She has cystinuria with history of frequent kidney stones and CT scan today showed a 4 mm UPJ stone with mild obstructive uropathy. She is being admitted overnight for pain control.? Patient had retrieval of stone on 10/04 and discharged home with Urology follow up to take place outpatient. Status at Discharge Functional status at discharge: independent ambulation Overall status at discharge: patient is progressing back to baseline Time Spent with Patient Time attestation: Total time spent providing and/or coordinating discharge services: Time spent: Greater than 30 minutes Exam Const: General: no acute distress and uncomfortable Other: Pain is a 3 , constant, and burning. Resp: Effort & Inspection: normal respiratory effort Auscultation: clear to auscultation bilaterally Cardio: Rate: regular rate Rhythm: regular rhythm GI: GI Palp: Yes Soft to palpation and Yes Tenderness to palpation present (GI) (LLQ) Auscultation: normal bowel sounds Extrem: General: normal to inspection Psych: Mental Status: mental status grossly normal Affect: normal affect DS: Data Data Completed and Pending Pending studies at discharge: Pending at discharge 10/04/24 11:27 Surgical [PTH] Routine Labs on day of discharge: Labs from last 24 hours 10/04/24 08:45 WBC 10.2 H RBC 3.91 L Hgb 11.4 L D Hct 35.6 L MCV 91.0 MCH 29.2 MCHC 32.0 RDW 13.0 Plt Count 257 MPV 10.2 Immature Gran % (Auto) 0.5 Neut % (Auto) 65.4 Lymph % (Auto) 26.9 [place] % (Auto) 5.9 Eos % (Auto) 0.8 Baso % (Auto) 0.5 Lymph # (Auto) 2.75 [place] # (Auto) 0.6 Eos # (Auto) 0.1 Baso # (Auto) 0.1 Abs Immat Gran (auto) 0.05 H Absolute Neuts (auto) 6.7 Absolute Nucleated RBC 0.000 Nucleated RBC % 0.0 Sodium 139 Potassium 3.7 Chloride 106 Carbon Dioxide 28 Anion Gap 5 BUN 15 Creatinine 0.90 Estim Creat Clear Calc 77 Estimated GFR > 60 Glucose 81 Calcium 8.7 Total Bilirubin 0.6 AST 21 ALT 12 Alkaline Phosphatase 60 Total Protein 7.0 Albumin 3.5 Discharge Plan Discharge Attending physician on discharge: Luis Chery Consulting providers: Aron Ybarra Discharging Clinician: Luis Chery Anticipated Discharge Date/Time: 10/04/24 15:30 Patient Disposition: Home, Self-Care Activity: other - see discharge instructions Diet: other - see discharge instructions Discharge Instructions: 1) Activity: no driving or important decisions x24 hours. 2) Diet: resume your normal, pre-admission diet. 3) Follow-up: 2-3 weeks / call for appointment ([phone]). Patient Instructions: How to Stop Smoking (DC), Kidney Stones (DC), Pain Management (DC), Cystoscopy (DC) Stand Alone Forms: General Discharge Information Follow-up/Referrals: Narciso Sher MD [Physician] - Discharge Medications: New hydrocodone-acetaminophen 5-325 mg tablet 1 - 2 tablet PO Q6H PRN (Reason: pain) Qty: 12 0RF Continued alpha lipoic acid 200 mg Tablet 1,200 mg PO DAILY Essure See Rx Instructions .ROUTE .COMPLEX Rx Instructions: 1 implant intrauterinely fluticasone propionate [Flonase Allergy Relief] 50 mcg/actuation spray,suspension 2 spray NASAL DAILY PRN (Reason: allergies) Rx Instructions: administer into each nostril Date of admission: 10/03/24 17:35 Primary Care Provider: Tristan,Carmen Lion Admitting Provider: Luis Chery Attending physician on admission: Luis Chery Condition: Stable Hospitalist MIPS Heart Failure (Exclusion) Patient has history of Heart Transplant or Left Ventricular Assistive Device?: No IF YES, STOP HERE Heart Failure (Qualifier) Patient has current or prior documentation of LVEF less than or equal to 40%, or mod/servere depressed LVSF?: No IF NO, STOP HERE
== END 2024-10-04 15:50 | disposition home or self-care (01) ==
LOC: ANHED 13:47 → ANH3MEDSUR 19:44
PROVIDERS: Nurse Practitioner Family; Physician Assistant; Urology; Admitting Provider General Practice; Emergency Provider Emergency Medicine; PCP Nurse Practitioner; Visit Provider General Practice
PROC: (CPT 52352; principal; 2024-10-04 11:00)
DX: N20.2 Calculus of kidney with calculus of ureter (principal); E72.01 Cystinuria; Z87.442 Personal history of urinary calculi; F41.8 Other specified anxiety disorders; Z87.891 Personal history of nicotine dependence
CPT/HCPCS: 52352; 36415; 74018; 74176; 74420; 80053; 81001; 81025; 82365; 85025; 88300; 96361; 96374; 96375; 96376; 99285; A9270; C1769; G0378; J0690; J1100; J1171; J1200; J2250; J2405; J2550; J2704; J3010; J7030; J7120; Q9966

== ENCOUNTER 2024-12-09 18:16 | Emergency (ER) | payer BC, SELFPAY ==
--- OUTSIDE RECORDS SUMMARY | 2024-12-09 18:19 | XMS_ITS | Clinical Summary ---
Author Organization [facility] Address [address] [place] [address]. [place], [place] [address] [place] [address] Care Team Providers Care Sql Report Developer Name Role Phone Carmen Hudson NP Primary Care Provider [phone] Allergies Active Allergy Reactions Criticality Noted Date Comments Gold-Containing Drug Products Rash Low 10/04/2012 Jewerly Hydrocodone Unknown 03/09/2019 Nausea and vomiting, migraines Ketorolac Hives 03/09/2019 Swelling fingers Fingertips swelling Fingertips swelling Ketorolac Tromethamine Hives 06/23/2019 Lentil Anaphylaxis High 09/18/2017 Hives, lips and tongue swelling Misc Natural Products Anaphylaxis High 09/30/2017 Chickpeas: Hives, lips and tongue swelling Pea Hives,Nausea Only,Swelling High 12/06/2017 Soy Allergy (Do Not Select) Anaphylaxis High 07/21/2017 Hives, lips and tongue swells Sulfa Antibiotics Hives 06/23/2019 Rash and itching Thiethylperazine Hives 08/29/2020 Other reaction(s): Other Medications Alpha-Lipoic Acid 600 MG Tab Take 1 tablet by mouth 2 (two) times a day. 03/30/2023 Active penicillin VK 500 MG tabletIndication s:Strep pharyngitis Take 1 tablet (500 mg total) by mouth 3 (three) times daily for 10 days. 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 Dyspnea on exertion 03/04/2015 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 Calculus of kidney 07/09/2014 Encounters Date Type Department Care Team Description 12/06/2024 Telephone [facility] Family Medicine - [place] [address] [facility] [place] [address] Carmen Hudson NP Sore Throat; Medication 10/04/2024 Scan [facility] Scanned, Doc Med Group 10/03/2024 Scan [facility] Scanned, Doc Med Group from Last 3 Months Immunizations Name Administration Dates Next Due Influenza (Generic) 12/06/2017 Family History Medical History Relation Comments Lung Cancer Paternal Grandmother Relation Status Comments Paternal Grandmother Social History Tobacco Use Types Packs/Day Years Used Date Smoking Tobacco: Former Cigarettes 0.5 3 Passive Smoke Exposure: Never Smokeless Tobacco: Never Tobacco Cessation:Counseling Given: Yes Alcohol Use Standard Drinks/Week Comments Yes 0 (1 standard drink = 0.6 oz pur e alcohol) rare PHQ-2 Answer Date Recorded Patient Health Questionnaire-2 Score 0 08/25/2024 Comments No Sex and Gender Information Value Date Recorded Sex Assigned at Not on file Legal Sex Female 10:09 AM CDT Gender Identity Not on file Sexual Orientation Not on file Last Filed Vital Signs Vital Sign Reading Time Taken Comments Blood Pressure 102/68 08/25/2024 10:03 AM CDT Pulse 81 08/25/2024 10:03 AM CDT Temperature 36.8 ??C (98.2 ??F) 08/25/2024 10:03 AM C DT Respiratory Rate 18 08/25/2024 10:03 AM CDT Oxygen Saturation 97% 08/25/2024 10:03 AM CDT Inhaled Oxygen Concentration - - Weight 74.4 kg (164 lb) 08/25/2024 10:03 AM CDT Height 157.5 cm (5' 2 ) 10/15/2023 3:04 PM CAR SEAT MAKER Body Mass Index 30 10/15/2023 3:04 PM CAR SEAT MAKER Plan of Treatment Health Maintenance Due Date Last Done Comments Cervical Cancer Screening Pa p Smear (Age 30 to 64) Every 3 Years 1994 DTaP, Tdap and Td Vaccines ( 1 - Tdap) 2013 Hepatitis B Vaccines (1 of 3 - 19+ 3-dose series) 2013 Cervical Cancer Screening Pa p with HPV Testing (Age 30 to 64) Every 5 Years 2024 Cervical Cancer Screening with HPV 2024 COVID-19 Vaccine (2 - 2023-2 5 season) 2024 06/04/2021 Influenza Adult (#1) 2024 12/06/2017 Annual Physical 10/15/2024 10/15/2023 PHQ-2 (Physician Pauma) 11/09/2024 08/25/2024 Hepatitis C Completed 02/18/2024 HPV Vaccines Aged Out No longer eligi ble based on patient's age to complete this topic Meningococcal B Vaccine Aged Out No l onger eligible based on patient's age to complete this topic Meningococcal Vaccine Aged Out No mali rosina eligible based on patient's age to complete this topic Pneumococcal Vaccine: Pediat rics (0 to 5 Years) and At-Risk Patients (6 to 64 Years) Aged Out No longer eligi ble based on patient's age to complete this topic RSV Immunizations Under 20 Months Aged Out No longer eligible based on patient's age to complete this topic Procedures Procedure Name Priority Date/Time Associated Diagnosis Comments HEPATITIS C ANTIBODY Routine 02/18/2024 8:34 AM CDT Need for hepatitis C screening test from Last 3 Months or Most Recently Relevant to Health Maintenance Results * HEPATITIS C ANTIBODY (02/18/2024 8:34 AM CDT) HEPATITIS C AB NON-REACTI VE NON-REACT TAMARA 02/18/2024 6:56 PM CDT [facility] Comment: ANTIBODIES TO HCV NOT DETECTED. DOES NOT EXCLUDE THE POSSIBILITY OF EXPOSURE TO HCV. 02/18/2024 8:34 AM CDT us Carmen Hudson [facility] Final Res ult [facility] [address] [place] [address], [id number] from Last 3 Months or Most Recently Relevant to Health Maintenance Insurance [facility] Care Teams Sql Report Developer Relationship Specialty Start Date End Date Carmen Hudson NP [address] [place] [address] PCP - General NURSE PRACTITIONER 10/15/23
--- OUTSIDE RECORDS SUMMARY | 2024-12-09 18:19 | XMS_ITS | Encounter Summary ---
Author Organization [facility] Address [address] [place] [address]. [place] [address] [place] [address] Care Team Providers Care Machine Stoppage Frequency Checker Name Role Phone Carmen Hudson WIRE STRAIGHTENER Primary Care Provider [phone] Encounter Details Date Type Department Care Team ([facility] st Contact Info) Description 05/03/2024 ilustrum Message Enc [facility] Medical Group Family Medicine - [place] [address] [facility] [address] [place] [id number] [place], [facility] Provider Referral Social History Tobacco Use Types Packs/Day Years Used Date Smoking Tobacco: Former Cigarettes 0.5 3 Passive Smoke Exposure: Never Smokeless Tobacco: Never Alcohol Use Standard Drinks/Week Comments Yes 0 (1 standard drink = 0.6 oz pur e alcohol) rare PHQ-2 Answer Date Recorded Patient Health Questionnaire-2 Score 2 10/15/2023 Comments No Sex and Gender Information Value Date Recorded Sex Assigned at Not on file Legal Sex Female 10:09 AM CDT Gender Identity Not on file Sexual Orientation Not on file documented as of this encounter Plan of Treatment Not on file documented as of this encounter Visit Diagnoses Not on filedocumented in this encounter Additional Health Concerns Infection Onset Date Last Indicated Resolved Time COVID-19 Rule Out 08/25/2024 08/25/2024 08/25/2024 10:27 AM CDT Assessment Noted Time PHQ-9 Depression Total Score: 13 023 3:02 PM COORDINATOR OF PLACEMENT documented as of this encounter Care Teams Machine Stoppage Frequency Checker Relationship Specialty Start Date End Date Carmen Hudson NP [address] [place] [address] PCP - General NURSE PRACTITIONER 10/15/23 documented as of this encounter
--- OUTSIDE RECORDS SUMMARY | 2024-12-09 18:19 | XMS_ITS | Encounter Summary ---
Author Organization [facility] Address [address] [place] [address]. [place], [place] [address] [place] [address] Care Team Providers Care Level Vial Inside Grinder Name Role Phone Carmen Hudson NP Primary Care Provider [phone] Reason for Visit * Reason Onset Date Comments Sore Throat 12/06/2024 Medication 12/06/2024 Encounter Details Date Type Department Care Team (Late st Contact Info) Description 12/06/2024 Telephone [facility] Medical Group Family Medicine [facility] [address] [facility] [address] [place] [phone] Carmen Hudson NP [address] [place], [place] [address] Sore Throat; Medication Social History Tobacco Use Types Packs/Day Years [...] on file documented as of this encounter Progress Notes * Carmen Hudson NP - 12/09/2024 12:27 PM CST Noted. Will need to be seen kayy since she was not initally evaluated by me. DRIER * [place] Fu MA - 12/09/2024 12:18 PM CST I spoke with the patient and advised urgent care or walk-in clinic in [place]. She stated I can't right now, I'm getting my hair done. I told her she could be having a allergic reaction to Penicillin. She stated I stopped the medication and the the symptoms have subsided . I again advised if she is still having strep symptoms to be evaluated for strep, she stated she just wanted to switch antibiotic. Carmen is only in the office half day Fridays and she was not initially tested her, she would need to be evaluated. She said I just don't understand and hung up. DRIER * Carmen Hudson NP - 12/09/2024 10:05 AM CST Pt was not seen in office but empirically tx for strep d/t exposure from her daughter and symptoms without openings in office that day. .I don't have openings to see her so she can seek out urgent care for eval to see if she is having an allergic reaction to penicillin of if she has something else going on that is viral. Pt to stop penicillin but will need further guidance on treatment so will need to seek our care. DRIER * Carol Santacruz - 12/09/2024 8:59 AM CST Yesenia called in, she started on the antibiotic then she had sneezing, runny nose, eyes swollen, and welts in her mouth. She thinks she's allergic to it. She didn't take the 3rd dose yesterday. Please advise. * [place] Fu MA - 12/07/2024 11:23 AM CST Patient informed and voiced understanding * Carmen Hudson NP - 12/06/2024 4:53 PM CST Because of this and no appointments I sent in treatment for her. Penicillin three times a day for 10 days. Take full course of antibiotic as directed. Exchange toothbrush out after day 2 or 3 of antibiotic therapy. Don't share food or drink with others. For sore throat: recommend salt water gargles, throat lozenges, or chloraseptic spray. Cold food ordrinks that are soothing to the throat. Tylenol or Ibuprofen dosed for age/weight for discomfort. DRIER * Carol Santacruz - 12/06/2024 8:47 AM CST Yesenia called in, she has a sore throat. Her daughter Butch was here last week and had strep. No appts available today or tomorrow. Please advise. DRIER documented in this encounter Plan of Treatment Not on file documented as of this encounter Visit Diagnoses Diagnosis Strep pharyngitis- Primary Streptococcal sore throat documented in this encounter Additional Health Concerns Assessment Noted Time PHQ-9 Depression Total Score: 13 023 3:02 PM PORT DRIER documented as of this encounter Care Teams Level Vial Inside Grinder Relationship Specialty Start Date End Date Carmen Hudson NP [address] [place] [address] PCP - General NURSE PRACTITIONER 10/15/23 documented as of this encounter
--- OUTSIDE RECORDS SUMMARY | 2024-12-09 18:19 | XMS_ITS | Data Portability ---
Author Organization [facility] [place] Address [address] [place] [address] Care Team Providers Care Silk Screen Repairer Name Role Phone FAITH CORNELL Primary Care Provider Assessment Encounter Date Assessment Date Assessment LastModified by Organization Details LastModified Time 06/08/2024 06/08/2024 Annual gynecological exam performed. Patient will come back in a year unless there are new symptoms. chary Not available 06/08/2024 11:51:09 Plan of Treatment Reminders Order Date Submit Date Provider Last Modified By Organization Details Last Modified Time Details Appointments None record ed. Lab None record ed. Referral None record ed. Procedures None record ed. Surgeries None record ed. Imaging None record ed. Medication Orders None record ed. Patient TargetsNo targets recorded. Patient InstructionsNo instructions recorded. Reason for Referral None Reported. Procedures Surgical History Date Name Laterality Status Provider Name and Address Organization Details Recorded Time 02/13/20 23 Date of Last Pap Smear completed [facility] 06/08/2024 11:52:04 02/08/20 23 Date of Last Mammogram completed [facility] 06/08/2024 11:52:04 02/08/20 23 Breast Biopsy completed [facility] 06/08/2024 11:52:19 05/09/20 18 female sterilization completed SHANNAN Gonzales [address], [place], [address], [facility] 06/08/2024 14:07:48 10/25/20 14 [facility] 11:52:19 procedure on kidney completed SHANNAN Gonzales [address], [place], [address], [place] [facility] 06/08/2024 12:12:07 Imaging Results None recorded. Procedure Notes None recorded. Medical Equipment None Reported. Allergies Allergen ID Allergen Name Allergen Category Reaction Reaction Severity Criticality Documentation Date Start Date Code Code System Note Provider Name and Address Organization Details Recorded Time 85595 ketorolac medicatio n swelling severe Not available 06/08/2024 27964 RxNorm Sarah Zamudio [facility] 11:51:48 34860 soy environme nt,food,m edication hives moderate Not available 06/08/2024 43430 UNK Sarah Zamudio [facility] 11:51:48 71020 chickpea allergeni c extract food hives severe Not available 06/08/2024 76182 49 RxNorm Sarah Zamudio [facility] 11:51:48 47226 nickel environme nt Not available Not available Not available 06/08/2024 68732 29 RxNorm Sarah Zamudoi [facility] 11:57:45 Medications Name Sig Start Date Stop Date Status Note LastModified by Organization Details LastModified Time alpha lipoic acid 06/08/20 24 active Not Available Not Available Not Avai lable Vyvanse 20 mg capsule 2023 completed Not Available Not Available Not Available Vitals Date Recorded Body height Body mass index (BMI) Body weight Systolic blood pressure Diastolic blood pressure Provider Name and Address Organization Details Last Updated DateTime 06/08/2024 154.94 cm 31.7 kg/m2 12795.52 g 122 mm[Hg] 73 mm[Hg] Sarah [facility] 11:54:39 Social History Question Answer Notes LastModified by Organizat ion Details LastModified Time Tobacco Smoking Status Never Smoker vape Sarah Zamudio delbert, [facility] 06/08/2024 12:00:05 What Is Your Level Of Alcohol Consumption? None Information not available 06/08/2024 Are You Blind Or Do You Have Difficulty Seeing? No Information not available 06/08/2024 What Is Your Level Of Caffeine Consumption? Moderate Information not available 06/08/2024 In The 14 Days Before Symptom Onset, Have You Had Close Contact With A Laboratory-confir med COVID-19 While That Case Was Ill? No Information not available 06/08/2024 In The 14 Days Before Symptom Onset, Have You Had Close Contact With A Person Who Is Under Investigation For COVID-19 While That Person Was Ill? No Information not available 06/08/2024 Have You Been To An Area Known To Be High Risk For COVID-19? No Information not available 06/08/2024 Are You Deaf Or Do You Have Serious Difficulty Hearing? No Information not available 06/08/2024 What Type Of Diet Are You Following? REGULAR Information not available 06/08/2024 What Is The Highest Grade Or Level Of School You Have Completed Or The Highest Degree You Have Received? 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 No Information not available 06/08/2024 Do You Use Protection During Sex? No Information not available 06/08/2024 Do You Use Your Seat Belt Or Car Seat Routinely? Yes Information not available 06/08/2024 Do You Have Smoke And Carbon Monoxide Detectors In Your Home? Yes Information not available 06/08/2024 How Much Tobacco Do You Smoke? No Information not available 06/08/2024 Do You Feel Stressed (tense, Restless, Nervous, Or Anxious, Or Unable To Sleep At Night)? AB08012-6 critical access Information not available 06/08/2024 Do You Use Any Illicit Or Recreational Drugs? No critical access Information not available 06/08/2024 Do You Use Sunscreen Routinely? Yes critical access Information not available 06/08/2024 Have You Used IV Drugs? No critical access Information not available 06/08/2024 Sex: Unknown Functional Status Question Answer Note LastModified by Organization D etails LastModified Time Are you able to walk? YESWOREST critical access Information not available 06/08/2024 What is your exercise level? Moderate critical access Information not available 06/08/2024 Mental Status None recorded. Family History Relationship Description Onset Age of this Age Resolved Age Notes LastModified by Organization Details LastModified Time Son Heart disease critical access Not available 2023 11:51:54 Medical History Condition Response Breast Problem Other Y Heart Disease Y Kidney Disease Y Gynecological History Statement/Question Response Date of Last Mammogram 02/07/2023 Date of LMP 05/11/2024 N Was last menstrual period normal Y STIs/STDs N Date of Last Colonoscopy Unknown Desired Control Method Fertility A wareness Method Abnormal Pap N On BCP's at Conception? N HPV Vaccine Y Colposcopy Duration of Flow (days) 3 Current Control Method Other Age at First Child 16 Are cycles usually normal Y Frequency of Cycle (Q days) 28 Sexually Active? Y Menses Monthly Y Date of DEXA bone scan Age of first menstrual cycle 13 Date of Last Pap Smear 02/12/2023 Sexual Problems? N LMP Approximate N Obstetrics History GPAL:G 2 P 2 0 0 1 Type Value Full Term 2 Living 1 Total 2 Past Encounters Encounter ID Performer Location Encounter Start Date Encounter Closed Date Diagnosis/Indication Diagnosis SNOMED-CT Code Diagnosis ICD10 Code Diagnosis Note [id number] SHANNAN Gonzales [place] [address] [address] 06/08/2024 11:45:56 06/08/2024 15:02:48 Gynecologic examination 57601745 Z01.419 WWEBC - essurepap due 2025declin ed STI screenUTD with PCP recommende d MOISES referral if considerin g fertility, she will consider and let us know if referral desired It is strongly advised to have an annual flu shot and up can obtain at most pharmacies . If you have not had a TDap shot in the last 10 years you should obtain one as well. Discussed with patient & provided with informatio n regarding the HPV vaccine. Encourage safe sexual practices. Do monthly self breast exams. Have mammogram yearly or every other year depending on family history. Engage in regular exercise. Avoid tobacco and illicit drugs. This lifestyle behavior pattern will lead to less health conditions and longer life span. If BMI greater than 25 dietary consult advised. Patient received above instructio ns. Breast lump [id number] N63 .0 recommende d updated breast imagingdis cussed referral to breast specialist pending updated imaging Health Concerns Section Related Observation LastModified by Organization Detai ls LastModified Time None Recorded Concern Status LastModified by Organization Details LastModified Time None Recorded Advance Directives Directive None Recorded Payers Encounter Date Sequence Insurance Name Policy Number Policy Zuniga Covered Member ID Zuniga Member ID Guarantor Name 06/08/2024 1 DILAN FORD (PPO) [id number] Yesenia Yip [id number] Jose Yip Notes Date Note Type Note Provider Name and Address Organization Details Recorded Time 06/08/2024 text/html Annual GYNReport ed bypatient.Menstrua l cycle:Normal menses Urinary symptoms:No hematuria; No incontinence Vulva:No genital lesion Vagina:Normal vaginal discharge Breast:No nipple discharge;Breast pain;Breast lump; right breast lump Current Contraception:essu re Sexual complaints:No sexual complaints; No pain during intercourse; Normal libido Menopausal Symptoms:No menopausal symptoms; Normal vaginal lubrication Psychological symptoms:No depression; No anxiety; No PMDD Preventive measures:Encourage self breast examination; Encourage regular exercise; Encourage no tobacco use; Encourage regular mammograms starting age 40Notes:28yo [id number] h/o abnormal papslast pap 02/2023 per ptBC - essure (done in 2018). considering future fertility, has questions about options for essure removal today right breast lump, had biopsy 02/2023 (benign per pt). Feels as if lump has grown over the past few months, tender at times. Her son passed in 2019 of hypoplastic heart syndrome SHANNAN Gonzales [address], [place], [address], [place] [facility] 06/08/2024 14:31:26 OBGyn Episode Ob Episode Information Episode Created Date Number of Fetuses Patient Bloodtype Patient rh Status Prepregnancy Weight lbs Domestic Partner Domestic Partner Phone Father Name Merchandise Associate Status 06/08/20 24 1 CLOSED Fetus Data First Name Last Name Admitted to NICU Weight (g) Sex Living Outcome Pediatric Complications Fetus ID Race Codes Race Delivery Type F Full Term [id number] Vaginal Delivery Jeremy Calculation Initial Jeremy Date Initial Exam Date Initial Exam Provider Initial Ultrasound Date Last Menstrual Period Date Ultra Sound Weeks Gestation 0 Eighteen To Twenty Week Jeremy Update Ultra Sound Date Fundal Height At Umbil Quickening Date Ultra Sound Latest Weeks Gestation Final Jeremy Confirmed By Final Jeremy Confirmed Date Final Jeremy Date Ultra Sound Latest Days Gestation 0 0 Menstrual History Last Menstrual Date Menses Monthly On Bcp Conception Prior Menses Frequency Hcg Plus Date Menarche Onset Age Delivery Information Delivery Date Delivery Type Labor Anesthesia Weeks Gestation Incision Type Labor Labor Length Hrs Delivered By Post Complications Tubal Sterilization Discharge Date Comments 1 Discharge Information Feeding Method Contraceptive Method Maternal HG B and HCT Levels Ob Episode Information Episode Created Date Number of Fetuses Patient Bloodtype Patient rh Status Prepregnancy Weight lbs Domestic Partner Domestic Partner Phone Father Name Merchandise Associate Status 06/08/20 24 1 CLOSED Fetus Data First Name Last Name Admitted to NICU Weight (g) Sex Living Outcome Pediatric Complications Fetus ID Race Codes Race Delivery Type M Full Term [id number] Primary Jeremy Calculation Initial Jeremy Date Initial Exam Date Initial Exam Provider Initial Ultrasound Date Last Menstrual Period Date Ultra Sound Weeks Gestation 0 Eighteen To Twenty Week Jeremy Update Ultra Sound Date Fundal Height At Umbil Quickening Date Ultra Sound Latest Weeks Gestation Final Jeremy Confirmed By Final Jeremy Confirmed Date Final Jeremy Date Ultra Sound Latest Days Gestation 0 0 Menstrual History Last Menstrual Date Menses Monthly On Bcp Conception Prior Menses Frequency Hcg Plus Date Menarche Onset Age Delivery Information Delivery Date Delivery Type Labor Anesthesia Weeks Gestation Incision Type Labor Labor Length Hrs Delivered By Post Complications Tubal Sterilization Discharge Date Comments 4 Discharge Information Feeding Method Contraceptive Method Maternal HG B and HCT Levels
--- OUTSIDE RECORDS SUMMARY | 2024-12-09 18:19 | XMS_ITS | Data Portability ---
Author Organization [place] [facility] [place] sallyDORIS_SMG_POSTACUTE_Ltle SisterAsst Address [address] [place] [address] Care Team Providers Care Designer Name Role Phone DANELLE VALE Urologist Assessment No assessment recorded. Plan of Treatment Reminders Order Date Submit Date Provider Last Modified By Organization Details Last Modified Time Details Appointments None recorded. Lab ccp (cyclic citrullinat ed peptide) igg, serum [address] [facility], [facility] [place], [address], 0 08:30:25 rf (rheumatoid factor) + anti-ccp abs, serum [address] [facility], [address] [place], [address], 0 08:30:25 ESR (erythrocyt e sedimentati on rate), blood [address] [facility], [address] [place], [address], 0 08:30:25 C-reactive protein, quantitativ e, serum or plasma 2019 [facility], [address] [place], [address], 0 12:58:46 CBC w/ auto diff 2019 [facility], [address] [place] [address], [address], 0 12:05:47 CMP, serum or plasma 2019 [facility], [address] [place] [address], [address], 0 12:58:30 complement, total, serum 2019 [facility], [address] [place] [address], [address], 0 15:22:49 [email or web address] Ab, serum 2019 [facility], [address] [place] [address], [address], 0 09:10:24 protein, total + protein electrophor esis + immunofixat ion, unspecified specimen 2019 [email or web address] [facility], [address] [place] [address], [address], 0 08:30:25 dsDNA Ab, serum 2019 [facility], [address] [place] [address], [address], 0 09:10:23 knox Ab + senior database administrator Ab, serum 2019 [facility], [address] [place] [address], [address], 0 09:10:26 sjogren antibody panel (ssa, ssb, ro, la), serum 2019 [facility], [address] [place] [address], [id number], 0 09:10:28 C3 + C4 (complement ), serum 2019 020 [facility], [address] [place], [address], 0 06:01:09 urinalysis, complete 2019 [facility], [address] [place], [address], 0 12:29:15 histone Ab, serum 2019 020 [facility], [address] [place], [address], 0 14:02:23 influenza virus A + B and SARS CoV 2, QL, AXEL+probe, respiratory specimen 2021 022 [email or web address] In-Office Order, Internal Use Only DO Not Attach Compendium DO Not Attach Compendium, Do Not Delete/merge, [id number] 2 12:12:20 influenza virus A + B and SARS CoV 2, QL, AXEL+probe, respiratory specimen 2021 022 [email or web address] In-Office Order, Internal Use Only DO Not Attach Compendium DO Not Attach Compendium, Do Not Delete/merge, [id number] 2 19:49:07 rapid strep group A, throat 2021 022 [email or web address] In-Office Order, Internal Use Only DO Not Attach Compendium DO Not Attach Compendium, Do Not Delete/merge, [id number] 2 19:49:[address] referral 2019 020 [email or web address] Not available 0 08:24:[address] referral 2019 020 [email or web address] Not available 0 08:13:42 Procedures None recorded. Surgeries None recorded. Imaging XR, chest, 2 view 2021 022 swati [facility], [address] [place], [address], 20:26:14 Medication Orders dexamethaso ne sodium phosphate 10 mg/mL injection solution 2021 022 [email or web address] Not available 11:24:59 amoxicillin 875 mg tablet 2021 [email or web address] [facility]/Pharmacy #[id number], [address] [place], [address], 11:24:56 ceftriaxone 1 gram solution for injection 2021 [email or web address] Not available 20:23:19 benzonatate 200 mg capsule 2021 [facility]/Pharmacy #[id number], [address] [place], [address], 20:17:52 doxycycline monohydrate 100 mg capsule 2021 [facility]/Pharmacy #[id number], [address] [place], [address], 20:17:52 dexamethaso ne sodium phosphate 10 mg/mL injection solution 2021 022 swill Not available 20:23:19 Patient TargetsNo targets recorded. Patient Instructions Encounter Date Encounter Id Patient Instructions Last Modified By Organization Details Last Modified Time 06/28/2020 [id number] learning about healthy weight [email or web address] Not available 06/28/2020 14:17:14 07/19/2020 [id number] learning about healthy weight [email or web address] Not available 07/19/2020 17:04:31 07/28/2022 [id number] 1. Take medicine as directed 2. Follow-up as needed [email or web address] Not available 07/28/2022 16:39:54 10/26/2022 [id number] As we discussed, your an office test for COVID, influenza and strep were negative. Your chest x-ray did not show any signs of infiltrate or fluid in the lungs. Based on your symptoms, I am treating you with an antibiotic called doxycycline. You also received an injection of ceftriaxone, an antibiotic, and dexamethasone, a steroid, here in clinic. push fluids warm salt water gargles three times daily and as needed yogurt daily while on antibiotic cool mist humidifier throat lozenges tylenol as needed for pain/fever mucinex dm over the counter twice daily as needed for sinus congestion and cough f/u here or with pcp if no improvement in 7 days or sooner if worse. [email or web address] Not available 10/26/2022 20:22:56 Reason for Referral Bisque Placer Referral for E ruption Referring Physician: Isidro Barahona Rheumatology, Encounter Date: 06/28/2020 Bisque Placer Referral for E ruption Referring Physician: Nnamdi Reece, Encounter Date: 07/19/2020 Results Created Date Observation Date Name Description Value Unit Range Abnormal Flag Note LastModifiedBy Organization Detail LastModifiedTime 06/28/2006/28/2020 CBC w/dif f white blood CT 7.5 K/cum m 3.2-11 .0 Not Available [facility] [address] [place], [address], 06/28/2020 12:05:47 06/28/20 20 06/28/2020 CBC w/dif f red blood count 4.76 M/cum m 3.80-5 .20 Not Available [facility] [address] [place], [address], 06/28/2020 12:05:47 06/28/20 20 06/28/2020 CBC w/dif f hemoglobin 13.6 g/dL 11.6-1 5.2 Not Available [facility] [address] [place], [address], 06/28/2020 12:05:47 06/28/20 20 06/28/2020 CBC w/dif f hematocrit 41.8 % 34.4-4 5.6 Not Available [facility] [address] [place], [address], 06/28/2020 12:05:47 06/28/2006/28/2020 CBC w/dif f MCV 87.8 fL 80.0-1 05.0 Not Available [facility] [address] [place] [address], [address], 06/28/2020 12:05:47 06/28/20 20 06/28/2020 CBC w/dif f MCH 28.6 pg 27.0-3 4.0 Not Available [facility] [address] [place] [address], [address], 06/28/2020 12:05:47 06/28/2006/28/2020 CBC w/dif f MCHC 32.5 g/dL 30.5-3 4.5 Not Available [facility] [address] [place] [address], [address], 06/28/2020 12:05:47 06/28/2006/28/2020 CBC w/dif f RDW 12.5 % 11.5-1 5.0 Not Available [facility] [address] [place] [address], [address], 06/28/2020 12:05:47 06/28/2006/28/2020 CBC w/dif f platelet count 340 K/cum m 150-45 0 Not Available [facility] [address] [place] [address], [address], 06/28/2020 12:05:47 06/28/20 20 06/28/2020 CBC w/dif f MPV 10.7 fL 7.7-12 .2 Not Available [facility] [address] [place] [address], [address], 06/28/2020 12:05:47 06/28/2006/28/2020 CBC w/dif f diff method Electr onic WBC differ ential count Not Available [facility] [address] [place] [address], [address], 06/28/2020 12:05:47 06/28/20 20 06/28/2020 CBC w/dif f seg neutrophils 64 % Not Available [facility] [address] [place] [address], [address], 06/28/2020 12:05:47 06/28/20 20 06/28/2020 CBC w/dif f lymphocytes 29 % Not Available [facility] [address] [place] [address], [address], 06/28/2020 12:05:47 06/28/20 20 06/28/2020 CBC w/dif f monocytes 5 % Not Available [facility] [address] [place] [address], [address], 06/28/2020 12:05:47 06/28/20 20 06/28/2020 CBC w/dif f eosinophils 2 % Not Available [facility] [address] [place] [address], [address], 06/28/2020 12:05:47 06/28/20 20 06/28/2020 CBC w/dif f basophils 0 % Not Available [facility] [address] [place] [address], [address], 06/28/2020 12:05:47 06/28/20 20 06/28/2020 CBC w/dif f absolute neutrophils 4.78 K/cum m 1.30-6 .00 Not Available [facility] [address] [place] [address], [address], 06/28/2020 12:05:47 06/28/20 20 06/28/2020 CBC w/dif f absolute lymphocytes 2.15 K/cum m 1.00-3 .50 Not Available [facility] [address] [place] [address], [address], 06/28/2020 12:05:47 06/28/20 20 06/28/2020 CBC w/dif f absolute monocytes 0.40 K/cum m 0.00-1 .00 Not Available [facility] [address] [place] [address], [address], 06/28/2020 12:05:47 06/28/20 20 06/28/2020 CBC w/dif f absolute eosinophils 0.12 K/cum m 0.00-0 .70 Not Available [facility] [address] [place], [address], 06/28/2020 12:05:47 06/28/20 20 06/28/2020 CBC w/dif f absolute basophils 0.03 K/cum m 0.00-0 .10 Testi ng by [facility] [address] [place] [address] Not Available [facility] [address] [place] [address], [address], 06/28/2020 12:05:47 06/28/20 20 06/28/2020 urina lysis , compl ete glucose-ur NEGATI VE mg/dL neg Not Available [facility] [address] [place] [address], [address], 06/28/2020 12:29:15 06/28/20 20 06/28/2020 urina lysis , compl ete ketone-ur NEGATI VE mg/dL neg Not Available [facility] [address] [place] [address], [address], 06/28/2020 12:29:15 06/28/20 20 06/28/2020 urina lysis , compl ete spec grav-ur 1.020 1.003- 1.035 Not Available [facility] [address] [place] [address], [address], 06/28/2020 12:29:15 06/28/20 20 06/28/2020 urina lysis , compl ete occult bld-ur MODERA TE neg abnormal Not Available [facility] [address] [place] [address], [address], 06/28/2020 12:29:15 06/28/20 20 06/28/2020 urina lysis , compl ete pH-ur 7.0 4.5-8. 0 Not Available [facility] [address] [place] [address], [address], 06/28/2020 12:29:15 06/28/20 20 06/28/2020 urina lysis , compl ete protein, ur 30 mg/dL neg abnormal [facility] [address] [place] [address], [address], 06/28/2020 12:29:15 06/28/20 20 06/28/2020 urina lysis , compl ete nitrite-ur NEGATI VE neg Not Available [facility] [address] [place] [address], 9[address], 06/28/2020 12:29:15 06/28/20 20 06/28/2020 urina lysis , compl ete leuk est-ur LARGE neg abnormal Not Available [facility] [address] [place] [address], 57697, 06/28/2020 12:29:15 06/28/20 20 06/28/2020 urina lysis , compl ete color-ur YELLOW yel Not Available [facility] [address] [place] [address], [address], 06/28/2020 12:29:15 06/28/20 20 06/28/2020 urina lysis , compl ete appearance-u r CLOUDY clear abnormal Not Available [facility] [address] [place] [address], [address], 06/28/2020 12:29:15 06/28/20 20 06/28/2020 urina lysis , compl ete WBC-ur 50-100 /hpf ztf abnormal Not Available [facility] [address] [place] [address], [address], 06/28/2020 12:29:15 06/28/20 20 06/28/2020 urina lysis , compl ete RBC-ur 10-25 /hpf ztt abnormal Not Available [facility] [address] [place], [address], 06/28/2020 12:29:15 06/28/20 20 06/28/2020 urina lysis , compl ete epi cell-ur 0-5 /hpf none abnormal Not Available [facility] [address] [place] [address], [address]99, 06/28/2020 12:29:15 06/28/20 20 06/28/2020 urina lysis , compl ete bacteria-ur TRACE /hpf trace abnormal Not Available [facility] [address] [place] [address], [address], 06/28/2020 12:29:15 06/28/20 20 06/28/2020 urina lysis , compl ete crystals,oth er-ur CYSTIN E PARUL LS none abnormal Not Available [facility] [address] [place] [address], [address], 06/28/2020 12:29:15 06/28/20 20 06/28/2020 urina lysis , compl ete urine comment micro This urine was exami tena micro scopi alison for the prese nce of WBC, RBC, bacte mere, casts , and other forme d eleme nts. Only those eleme nts seen were repor [place]. Testi ng by [facility] [address] [facility] [address] Not Available [facility] [address] [place] [address], [address], 06/28/2020 12:29:15 06/28/20 20 06/28/2020 sed rate sed rate 23 mm/HR 0-20 high Testi ng by [facility] [address] [place] [address] Not Available [facility] [address] [place] [address], [address], 06/28/2020 12:47:33 06/28/20 20 06/28/2020 CMP, serum or plasm a sodium 142 mmol/ L 136-14 5 Not Available [facility] [address] [place], [address], 06/28/2020 12:58:30 06/28/20 20 06/28/2020 CMP, serum or plasm a potassium 4.3 mmol/ L 3.5-5. 5 Not Available [facility] [address] [place] [address], 94[address], 06/28/2020 12:58:30 06/28/20 20 06/28/2020 CMP, serum or plasm a chloride 106 mmol/ L 98-110 Not Available [facility] [address] [place] [address], [address], 06/28/2020 12:58:30 06/28/20 20 06/28/2020 CMP, serum or plasm a CO2 28 mmol/ L 20-29 Not Available [facility] [address] [place] [address], [address], 06/28/2020 12:58:30 06/28/20 20 06/28/2020 CMP, serum or plasm a glucose 75 mg/dL 65-99 If resul t of rando m gluco se > or = 200 or if resul t of fasti ng gluco se is > 125 confi rm Diabe doe Melli tus diagn osis with secon d gluco se on a day. Not Available [facility] [address] [place] [address], [address], 06/28/2020 12:58:30 06/28/20 20 06/28/2020 CMP, serum or plasm a BUN 15 mg/dL 10-20 Not Available [facility] [address] [place] [address], [address], 06/28/2020 12:58:30 06/28/20 20 06/28/2020 CMP, serum or plasm a creatinine 1.03 mg/dL 0.70-1 .20 Not Available [facility] [address] [place] [address], [address], 06/28/2020 12:58:30 06/28/20 20 06/28/2020 CMP, serum or plasm a GFR non amer 76 mL/mi n/1.7 3_M2 >60 Eithe r of the follo wing must be prese nt for >=3 month s to be Chron ic Kidne y Disea se: -GFR less than 60 for >=3 month s -Albu min to Creat inine Ratio >=30 mg/g or other marke rs of kidne y damag e An estim ated GFR chron icall y in the range of 60-89 is categ orize d as mildl y decre ased, which corre spond s to Stage G2 CKD. CKD-E PI equat ion used to calcu late GFR. Not Available [facility] [address] [place], [address], 06/28/2020 12:58:30 06/28/20 20 06/28/2020 CMP, serum or plasm a GFR amer 87 mL/mi n/1.7 3_M2 >60 Eithe r of the follo wing must be prese nt for >=3 month s to be Chron ic Kidne y Disea se: -GFR less than 60 for >=3 month s -Albu min to Creat inine Ratio >=30 mg/g or other marke rs of gege y stevenag e An estim ated GFR chron icall y in the range of 60-89 is categ orize d as mildl y decre ased, which corre spond s to Stage G2 CKD. CKD-E PI equat ion used to estim ate GFR. Not Available [facility] [address] [place], [address], 06/28/2020 12:58:30 06/28/20 20 06/28/2020 CMP, serum or plasm a ALT 13 U/L 9-52 Not Available [facility] [address] [place], [address], 06/28/2020 12:58:30 06/28/20 20 06/28/2020 CMP, serum or plasm a AST 16 U/L 14-36 Not Available [facility] [address] [place] [address], [address], 06/28/2020 12:58:30 06/28/20 20 06/28/2020 CMP, serum or plasm a alk phosphatase 80 U/L 38-126 Not Available [facility] [address] [place] [address], [address], 06/28/2020 12:58:30 06/28/20 20 06/28/2020 CMP, serum or plasm a bilirubin total 0.3 mg/dL 0.1-1. 2 Not Available [facility] [address] [place] [address], [address], 06/28/2020 12:58:30 06/28/20 20 06/28/2020 CMP, serum or plasm a protein total 7.1 g/dL 6.0-8. 3 Not Available [facility] [address] [place] [address], 15697, 06/28/2020 12:58:30 06/28/20 20 06/28/2020 CMP, serum or plasm a albumin 3.8 g/dL 3.5-5. 0 Not Available [facility] [address] [place] [address], 79[address], 06/28/2020 12:58:30 06/28/20 20 06/28/2020 CMP, serum or plasm a calcium 9.1 mg/dL 8.4-10 .5 Testi ng by [facility] [address] [place] [address] Not Available [facility] [address] [place] [address], [address], 06/28/2020 12:58:30 06/28/20 20 06/28/2020 C-cecelia ctive prote in, quant itati ve, serum or plasm a C-reac protein 0.2 mg/dL 0.1-0. 8 Testi ng by [facility] [address] [place] [id number] Not Available [facility] [address] [place], [address], 06/28/2020 12:58:46 06/28/20 20 06/29/2020 C3 and C4 panel complement C3 149 mg/dL 83-193 Not Available [facility] [address] [place] [address], [address], 06/29/2020 06:01:09 06/28/2006/29/2020 C3 and C4 panel complement C4 29.6 mg/dL 15.0-5 7.0 Testi ng by [facility] [address] [facility] [place] [address] Not Available [facility] [address] [place], [address], 06/29/2020 06:01:09 06/28/20 20 06/29/2020 RA diag panel 1 ccp antibody IgG 1.0 _ 0.0-2. 9 (NOTE ) Value Inter preta tion ----- ----- ----- ---- < 3.0 Negat tamara > or = 3.0 Posit tamara Perfo rmed by Multi plex Bead Immun oassa y metho dolog y Not Available [facility] [address] [place] [address], [address], 06/29/2020 09:10:21 06/28/2006/29/2020 RA diag panel 1 rheumatoid factor <15 IU/mL 0-29 RF POSIT TAMARA/I GG ANTI- CCP POSIT TAMARA: Consi stent with rheum atoid arthr itis in a patie nt with polya rthri tis. In early RA, these posit tamara test resul ts for both RF and anti- CCP are predi ctive of progr essiv e joint destr uctio n. RF POSIT TAMARA/I GG ANTI- CCP NEGAT TAMARA: Consi stent with rheum atoid arthr itis in a patie nt with polya rthri tis. Posit tmaara RF and negat tamara anti- CCP, howev er, are more commo nly found in patie nts with other rheum atic disea ses such as syste viktoria lupus eryth emato nicky, scler oderm a, prima ry Sjogr en's Syndr ome, mixed conne ctive tissu e disea se, polym yosit is/de rmato myosi tis and cryog lobul inemi a. These test resul ts may also be found in 5-6% of healt hy older indiv idual s. RF NEGAT TAMARA/I GG ANTI- CCP POSIT TAMARA: Consi stent with rheum atoid arthr itis in a patie nt with polya rthri tis. A posit tamara anti- CCP resul t is frequ ently found in patie nts with early rheum atoid arthr itis and may be assoc iated with progr essio n of joint destr uctio n. RF NEGAT TAMARA/I GG ANTI- CCP NEGAT TAMARA: These serol ogic resul ts may be found in 10-20 % of patie nts with polya rthri tis that is clini alison and radio logic ally indis tingu ishab le from RA. Testi ng by [facility] [address] [place] Not Available [facility] [place], [address], 06/29/2020 09:10:21 06/28/20 20 06/29/2020 DNA (ds) antib lubna DNA (ds) antibody 1 IU 0-4 (NOTE ) Value Inter preta tion ----- ----- ----- ---- < or = 4 Negat tamara 5 - 9 Indet ermin ate > or = 10 Posit tamara Perfo rmed by Multi plex Bead Immun oassa y metho dolog y Testi ng by [facility] [address] [place] [address] Not Available [facility] [address] [place], [address], 06/29/2020 09:10:22 06/28/20 20 06/29/2020 oswaldo-1 antib lubna oswaldo-1 antibody <0.2 ai (NOTE ) AI Value Expla natio n of Resul ts ----- --- ----- ----- ----- ----- -- < 1.0 Negat tamara > or = 1.0 Posit tamara Testi ng by [facility] [address] [place] [address] Not Available [facility] [address] [place] [address], [address], 06/29/2020 09:10:24 06/28/20 20 06/29/2020 sm/rn p Ab scree n knox antibody <0.2 ai (NOTE ) AI VALUE EXPLA NATIO N OF RESUL TS ----- --- ----- ----- ----- ----- -- < 1.0 Negat tamara > or = 1.0 Posit tamara Perfo rmed by Multi plex Bead Immun oassa y metho dolog y Not Available [facility] [place], [address], 06/29/2020 09:10:26 06/28/20 20 06/29/2020 sm/rn p Ab scree n sm/senior database administrator antibody <0.2 ai (NOTE ) AI VALUE EXPLA NATIO N OF RESUL TS ----- --- ----- ----- ----- ----- -- < 1.0 Negat tamara > or = 1.0 Posit tamara Perfo rmed by Multi plex Bead Immun oassa y metho dolog y Testi ng by [facility] [address] [place] [address] Not Available [facility] [address] [place], [address], 06/29/2020 09:10:26 06/28/20 20 06/29/2020 sjogr ens scree n ssa antibody <0.2 ai (NOTE ) AI VALUE EXPLA NATIO N OF RESUL TS ----- --- ----- ----- ----- ----- -- <1.0 Negat tamara >or=1 .0 Posit tamara Perfo rmed by Multi plex Bead Immun oassa y metho dolog y Not Available [facility] [address] [place], [address], 06/29/2020 09:10:28 06/28/20 20 06/29/2020 sjogr ens scree n ssb antibody <0.2 ai (NOTE ) AI VALUE EXPLA NATIO N OF RESUL TS ----- --- ----- ----- ----- ----- -- <1.0 Negat tamara >or=1 .0 Posit tamara Perfo rmed by Multi plex Bead Immun oassa y metho dolog y Testi ng by [facility] [address] [facility] [place] [address] Not Available [facility] [address] [place], [address], 06/29/2020 09:10:28 06/28/20 20 06/28/2020 prot elec w/SC, rflx protein,tota l PE 7.0 g/dL 6.0-8. 3 Not Available [facility] [address] [place] [address], [address], 06/29/2020 13:43:05 06/28/20 20 06/29/2020 prot elec w/SC, rflx albumin 3.7 g/dL 3.6-5. 5 Not Available [facility] [address] [place], [address], 06/29/2020 13:43:05 06/28/20 20 06/29/2020 prot elec w/SC, rflx alpha 1 globulins 0.3 g/dL 0.1-0. 3 Not Available [facility] [place], [address], 06/29/2020 13:43:05 06/28/20 20 06/29/2020 prot elec w/SC, rflx alpha 2 globulins 0.7 g/dL 0.5-1. 1 Not Available [facility] [address] [place] [address], 55[address], 06/29/2020 13:43:05 06/28/20 20 06/29/2020 prot elec w/SC, rflx beta globulins 0.9 g/dL 0.7-1. 3 Not Available [facility] [address] [place] [address], 7[address], 06/29/2020 13:43:05 06/28/20 20 06/29/2020 prot elec w/SC, rflx gamma globulins 1.4 g/dL 0.7-1. 5 Not Available [facility] [address] [place] [address], 186[address], 06/29/2020 13:43:05 06/28/20 20 06/29/2020 prot elec w/SC, rflx PE interpretati on Normal patter n Testi ng by [facility] [address] [place] [address] Not Available [facility] [address] [place] [address], 57[address], 06/29/2020 13:43:05 06/28/20 20 06/29/2020 urine cultu re specimen description URINE Not Available [facility] [address] [place] [address], [address], 07/01/2020 13:14:49 06/28/20 20 06/29/2020 urine cultu re special requests NONE Not Available [facility] [address] [place] [address], [address]67[address], 07/01/2020 13:14:49 06/28/20 20 07/01/2020 urine cultu re culture MULTI PLE ORGAN ISMS PRESE NT, EACH LESS THAN 10,00 0 CFU/M L. THESE ORGAN ISMS, COMMO NLY FOUND ON EXTER NAL AND INTER NAL GENIT YESSI, ARE CONSI DERED TO BE COLON IZERS . NO FURTH ER TESTI NG PERFO RMED. Testi ng by [facility] [address] [place] [address] Not Available [facility] [address] [place], [address], 07/01/2020 13:14:49 06/28/20 20 07/01/2020 urine cultu re report status FINAL 07/01 Not Available [facility] [address] [place] [address], [address], 07/01/2020 13:14:49 06/28/20 20 07/02/2020 histo ne Ab, serum anti histone Ab <1.0 _ Refer ence range : <1.0 Unit: U (NOTE ) Value Expla natio n of Resul ts ----- - ----- ----- ----- ---- <1.0 Negat tamara 1.0 - 1.5 Weak Posit tamara 1.6 - 2.5 Moder ate Posit tamara >2.5 Stron g Posit tamara [facility] [id number] [facility] [place], [place] Edson La MD Not Available [facility] [address] [place] [address], [address], 07/02/2020 14:02:23 06/28/20 20 07/03/2020 ch50 ch50 >60 _ high Refer ence range : 31 to 60 Unit: U/mL [facility] [id number] [address] [place], [place] Edson La MD Not Available [facility] [address] [place] [address], [address], 07/03/2020 15:22:49 10/17/20 22 10/17/2022 influ arpit virus A + B and SARS CoV 2, QL, AXEL+p robe, respi rator y speci men Flu A (reference range = negative) negati ve Not Available In-Office Order Internal Use Only DO Not Attach Compendium DO Not Attach Compendium, Do Not Delete/merge, [id number] 10/17/2022 11:25:59 10/17/20 22 10/17/2022 influ arpit virus A + B and SARS CoV 2, QL, AXEL+p robe, respi rator y speci men Flu B (reference range = negative) negati ve Not Available In-Office Order Internal Use Only DO Not Attach Compendium DO Not Attach Compendium, Do Not Delete/merge, [id number] 10/17/2022 11:25:59 10/17/20 22 10/17/2022 influ arpit virus A + B and SARS CoV 2, QL, AXEL+p robe, respi rator y speci men SARS (reference range = negative) negati ve Not Available In-Office Order Internal Use Only DO Not Attach Compendium DO Not Attach Compendium, Do Not Delete/merge, [id number] 10/17/2022 11:25:59 10/17/20 22 10/17/2022 influ arpit virus A + B and SARS CoV 2, QL, AXEL+p robe, respi rator y speci men Control (reference range = valid) Valid Not Available In-Off ice Order Internal Use Only DO Not Attach Compendium DO Not Attach Compendium, Do Not Delete/merge, [id number] 10/17/2022 11:25:59 10/17/20 22 10/17/2022 influ arpit virus A + B and SARS CoV 2, QL, AXEL+p robe, respi rator y speci men Disclaimer Test perfor med using immuno fluore scence techno logy for antige n detect ion under FDA Not Available In-Office Order Internal Use Only DO Not Attach Compendium DO Not Attach Compendium, Do Not Delete/merge, [id number] 10/17/2022 11:25:59 10/17/20 22 10/17/2022 influ arpit virus A + B and SARS CoV 2, QL, AXEL+p robe, respi rator y speci men Disclaimer cont Emerge ncy Use Author ronda marie (EUA) Not Available In-Office Order Internal Use Only DO Not Attach Compendium DO Not Attach Compendium, Do Not Delete/merge, [id number] 10/17/2022 11:25:59 10/17/20 22 10/17/2022 influ arpit virus A + B and SARS CoV 2, QL, AXEL+p robe, respi rator y speci men Fact Sheet for Providers https: //www. Celnyx/s ites/d efault /files /produ ct/doc uments /FS203 7700EN 00.pdf Not Available In-Office Order Internal Use Only DO Not Attach Compendium DO Not Attach Compendium, Do Not Delete/merge, [id number] 10/17/2022 11:25:59 10/17/20 22 10/17/2022 influ arpit virus A + B and SARS CoV 2, QL, AXEL+p robe, respi rator y speci men Fact Sheet for Patients https: //www. [employer]/s ites/d efault /files /produ ct/doc uments /FS203 [id number] N00.pd f Not Available In-Office Order Internal Use Only DO Not Attach Compendium DO Not Attach Compendium, Do Not Delete/merge, [id number] 10/17/2022 11:25:59 10/26/20 22 10/26/2022 influ arpit virus A + B and SARS CoV 2, QL, AXEL+p robe, respi rator y speci men Flu A (reference range = negative) negati ve Not Available In-Office Order Internal Use Only DO Not Attach Compendium DO Not Attach Compendium, Do Not Delete/merge, [id number] 10/26/2022 19:34:52 10/26/20 22 10/26/2022 influ arpit virus A + B and SARS CoV 2, QL, AXEL+p robe, respi rator y speci men Flu B (reference range = negative) negati ve Not Available In-Office Order Internal Use Only DO Not Attach Compendium DO Not Attach Compendium, Do Not Delete/merge, [id number] 10/26/2022 19:34:52 10/26/20 22 10/26/2022 influ arpit virus A + B and SARS CoV 2, QL, AXEL+p robe, respi rator y speci men SARS (reference range = negative) negati ve Not Available In-Office Order Internal Use Only DO Not Attach Compendium DO Not Attach Compendium, Do Not Delete/merge, [id number] 10/26/2022 19:34:52 10/26/20 22 10/26/2022 influ arpit virus A + B and SARS CoV 2, QL, AXEL+p robe, respi rator y speci men Control (reference range = valid) Valid Not Available In-Off ice Order Internal Use Only DO Not Attach Compendium DO Not Attach Compendium, Do Not Delete/merge, [id number] 10/26/2022 19:34:52 10/26/20 22 10/26/2022 influ arpit virus A + B and SARS CoV 2, QL, AXEL+p robe, respi rator y speci men Disclaimer Test perfor med using [place]ileoe scence techno logy for antige n detect ion under FDA Not Available In-Office Order Internal Use Only DO Not Attach Compendium DO Not Attach Compendium, Do Not Delete/merge, [id number] 10/26/2022 19:34:52 10/26/20 22 10/26/2022 influ arpit virus A + B and SARS CoV 2, QL, AXEL+p robe, respi rator y speci men Disclaimer cont Emerge ncy Use Author ronda marie (EUA) Not Available In-Office Order Internal Use Only DO Not Attach Compendium DO Not Attach Compendium, Do Not Delete/merge, 10/26/2022 19:34:52 10/26/20 22 10/26/2022 influ arpit virus A + B and SARS CoV 2, QL, AXEL+p robe, respi rator y speci men Fact Sheet for Providers https: //www. Celnyx/s ites/d luis eault /files /produ ct/doc uments /FS203 7700EN 00.pdf Not Available In-Office Order Internal Use Only DO Not Attach Compendium DO Not Attach Compendium, Do Not Delete/merge, 10/26/2022 19:34:52 10/26/20 22 10/26/2022 influ arpit virus A + B and SARS CoV 2, QL, AXEL+p robe, respi rator y speci men Fact Sheet for Patients https: //www. [employer]/s ites/d efault /files /produ ct/doc uments /FS203 [id number] N00.pd f Not Available In-Office Order Internal Use Only DO Not Attach Compendium DO Not Attach Compendium, Do Not Delete/merge, [id number] 10/26/2022 19:34:52 10/26/20 22 10/26/2022 rapid strep group A, throa t Unknown Analyte negati ve Not Available In-Office Order Internal Use Only DO Not Attach Compendium DO Not Attach Compendium, Do Not Delete/merge, [id number] 10/26/2022 19:35:42 10/26/20 22 10/26/2022 rapid strep group A, throa t Unknown Analyte Valid Not Available In-Off ice Order Internal Use Only DO Not Attach Compendium DO Not Attach Compendium, Do Not Delete/merge, [id number] 10/26/2022 19:35:42 10/26/20 22 10/26/2022 XR, chest [facility] [address] [facility] [place] [facility] [place] [facility] EXAMIN ATION: CHEST PA/LAT ERAL - ACC #: CPT: [id number] Mod: RIS Order: [id number] (ECX) (0028) HIS Order: [id number] HLT-RA D [id number] STARTE D: COMPLE WINSTON: Oct 26 2022 7:10PM TECH INITIA LS: FULL RESULT : Examin ation: PA and latera l chest. DATE OF EXAMIN ATION: 2017 INDICA TION: Chroni c cough FINDIN GS: The lungs are adequa tely aerate d and clear. No infilt rates or effusi ons are noted. A mild right midtho racic right convex scolio sis is presen t. The cardia c silhou ette is normal calibe r. The trache a is midlin e. CONCLU JOSE A: 1. No acute thorac ic pathol ogy is noted. BERHANE ONICAL LY SIGNED BY: AMBER BETANCOURT Oct 26 2022 7:10PM Dictat ed: Oct 26 2022 7:10PM Transc ribed: Oct 26 2022 7:10PM [id number] Disper sed: Oct 26 2022 7:10PM Attend ing Dr: SANDRO ALEXANDRA ing Dr: , Primar y Care: Additi onal Doctor (s): BERHANE ONICAL LY SIGNED BY: Oct 26 2022 7:10PM ^ [email or web address] [facility] [address] [place], [address], 10/26/2022 20:12:20 Result Notes None recorded. Procedures Surgical History Date Name Laterality Status Provider Name and Address Organization Details Recorded Time section completed Karen Baez RN [facility] 06/28/2020 08:56:07 lithotripsy completed Karen Baez RN [facility] 06/28/2020 08:56:23 Cystoscopy completed Karen Baez RN [facility] 06/28/2020 08:56:43 Other completed Karen Baez RN [facility] 06/28/2020 08:56:57 procedure on kidney completed Karen Trion LAN ANALYST [facility] 07/28/2022 16:24:37 Imaging Results Imaging Date Name Status LastModified by Organiz ation Details LastModified Time 10/26/2022 XR, chest, 2 view completed [email or web address] [facility] [address] [place], [address], 10/26/2022 20:12:20 Procedure Notes None recorded. Medical Equipment None Reported. Allergies Allergen ID Allergen Name Allergen Category Reaction Reaction Severity Criticality Documentation Date Start Date Code Code System Note Provider Name and Address Organization Details Recorded Time 0402140 Substance with sulfonami de structure and antibacte rial mechanism of action (substanc e) medicatio n hives Not available Not available 06/28/2020 80981 8003 SNOMED Karen Baez RN null, [facility] 0 08:50:48 [id number] Torecan medicatio n other Not available Not available 06/28/2020 02506 1 RxNorm finge r tips swell Karen Baez RN null, [facility] 0 08:51:16 Medications Name Sig Start Date Stop Date Status Note LastModified by Organization Details LastModified Time clonidine HCl 0.1 mg tablet TAKE 1 TABLET (0.1 MG TOTAL) BY MOUTH EVERY EVENING. 07/28 completed Not Available Not Available Not Available benzonatate 200 mg capsule Take 1 capsule 3 times a day by oral route as needed for 10 days. 2021 active Not Available Not Available Not Avai lable prochlorper azine maleate 5 mg tablet TAKE 1 TABLET (5 MG TOTAL) BY MOUTH DAILY NEEDED FOR NAUSEA. 10/17 completed Not Available Not Available Not Available acetaminoph en 300 mg-codeine 30 mg tablet Take 1 tablet as needed by oral route for 7 days. 07/28 completed Not Available Not Available Not Available alprazolam 0.5 mg tablet TAKE 1 TABLET BY MOUTH EVERY DAY NEEDED FOR ANXIETY 10/17 completed Not Available Not Available Not Available ceftriaxone 1 gram solution for injection Take 1 g every day by injection route for 1 day. 2021 active Not Available Not Available Not Avai lable amoxicillin 875 mg tablet TAKE 1 TABLET BY MOUTH EVERY 12 HOURS FOR 7 DAYS 10/17 completed Not Available Not Available Not Available doxycycline monohydrate 100 mg capsule Take 1 capsule twice a day by oral route for 7 days. 2021 active Not Available Not Available Not Avai lable levofloxaci n 750 mg tablet TAKE 1 TABLET BY MOUTH EVERY DAY FOR 5 DAYS 07/28 completed Not Available Not Available Not Available hydromorpho ne 4 mg tablet TAKE 1 TABLET (4 MG TOTAL) BY MOUTH EVERY 6 (SIX) HOURS NEEDED FOR PAIN FOR UP TO 20 DAYS. 07/28 completed Not Available Not Available Not Available dexamethaso ne sodium phosphate 10 mg/mL injection solution Give 10 mg Decadron IM now 2021 active Not Available Not Available Not Avai lable Vyvanse 30 mg capsule TAKE 1 CAPSULE BY MOUTH EVERY DAY IN THE MORNING 10/17 completed Not Available Not Available Not Available Vyvanse 20 mg capsule TAKE 1 CAPSULE BY MOUTH EVERY DAY IN THE MORNING active Not Available Not Available No t Available Vyvanse 10 mg capsule TAKE 1 CAPSULE BY MOUTH EVERY DAY IN THE MORNING 10/17 completed Not Available Not Available Not Available desvenlafax ine succinate ER 25 mg tablet,exte nded release 24 hr TAKE 1 TABLET BY MOUTH EVERY DAY 09/19 /2022 completed Not Available Not Available Not Available Trintellix 5 mg tablet TAKE 1 TABLET (5 MG TOTAL) BY MOUTH DAILY. active Not Available Not Available No t Available Trintellix 20 mg tablet Take 1 tablet every day by oral route. 10/17 completed Not Available Not Available Not Available Vitals Date Recorded Body height Provider Name an d Address Organization Details Last Updated DateTime 06/28/2020 157.48 cm Karen sandra RN [place] [facility] 06/28/2020 08:48:39 Date Recorded Body mass index (BMI) Body weight Provider Name and Address Organization Details Last Updated DateTime 06/28/2020 30.4 kg/m2 83390.77 g Karen Baez RN [facility] 06/28/2020 08:48:43 Date Recorded Heart rate Provider Name an d Address Organization Details Last Updated DateTime 06/28/2020 94 /min Karen sandra RN [place] [facility] 06/28/2020 08:50:12 Date Recorded Body temperature Provider Name a nd Address Organization Details Last Updated DateTime 06/28/2020 98 [degF] Karen sandra RN [place] [facility] 06/28/2020 08:50:17 Date Recorded Body height Provider Name an d Address Organization Details Last Updated DateTime 07/19/2020 157.48 cm Camri Bell LAN ANALYST [place] [facility] 07/19/2020 14:25:06 Date Recorded Body mass index (BMI) Body weight Provider Name and Address Organization Details Last Updated DateTime 07/19/2020 31.3 kg/m2 88738.01 g Camri Bell LAN ANALYST [place] [facility] 07/19/2020 14:28:36 Date Recorded Body temperature Provider Name a nd Address Organization Details Last Updated DateTime 07/19/2020 97.2 [degF] Camri Bell LAN ANALYST [place] [facility] 07/19/2020 14:29:08 Date Recorded Heart rate Provider Name an d Address Organization Details Last Updated DateTime 07/19/2020 100 /min Camri Bell LAN ANALYST [facility] 07/19/2020 14:29:42 Date Recorded Body height Provider Name an d Address Organization Details Last Updated DateTime 07/28/2022 157.48 cm Karen Norma LAN ANALYST [place] - [facility] 07/28/2022 16:21:39 Date Recorded Body mass index (BMI) Body weight Provider Name and Address Organization Details Last Updated DateTime 07/28/2022 29 kg/m2 37348.39 g Karen Castleber ry LAN ANALYST [place] [facility] 07/28/2022 16:21:46 Date Recorded Heart rate Provider Name an d Address Organization Details Last Updated DateTime 07/28/2022 78 /min Karen Trion LAN ANALYST [place] [facility] 07/28/2022 16:22:06 Date Recorded Respiratory rate Provider Name a nd Address Organization Details Last Updated DateTime 07/28/2022 16 /min Karen Castleberr y LAN ANALYST [place] [facility] 07/28/2022 16:22:09 Date Recorded Oxygen saturation Oxygen saturation in Arterial blood by Pulse oximetry Provider Name and Address Organization Details Last Updated DateTime 07/28/2022 100 % 100 % Karen Trion LAN ANALYST [place] [facility] 07/28/2022 16:22:20 Date Recorded Body temperature Provider Name a nd Address Organization Details Last Updated DateTime 07/28/2022 97.5 [degF] Karen Castleberr y LAN ANALYST [place] [facility] 07/28/2022 16:22:26 Date Recorded Body height Provider Name an d Address Organization Details Last Updated DateTime 10/17/2022 157.48 cm Karen Trion LAN ANALYST [place] [facility] 10/17/2022 11:15:42 Date Recorded Body mass index (BMI) Body weight Provider Name and Address Organization Details Last Updated DateTime 10/17/2022 28.6 kg/m2 41741.86 g Karen Castleber ry LAN ANALYST [place] [facility] 10/17/2022 11:20:49 Date Recorded Body temperature Provider Name a nd Address Organization Details Last Updated DateTime 10/17/2022 97.5 [degF] Karen Castleberr y LAN ANALYST [place] [facility] 10/17/2022 11:21:10 Date Recorded Respiratory rate Provider Name a nd Address Organization Details Last Updated DateTime 10/17/2022 16 /min Karen Castleberr y LAN ANALYST [place] [facility] 10/17/2022 11:21:12 Date Recorded Oxygen saturation Oxygen saturation in Arterial blood by Pulse oximetry Provider Name and Address Organization Details Last Updated DateTime 10/17/2022 99 % 99 % Karen Green [facility] [place] [facility] 10/17/2022 11:21:23 Date Recorded Heart rate Provider Name an d Address Organization Details Last Updated DateTime 10/17/2022 78 /min Karen Green [facility] IN [facility] 10/17/2022 11:21:27 Date Recorded Body height Provider Name an d Address Organization Details Last Updated DateTime 10/26/2022 157.48 cm David Tate [facility] IN [facility] 10/26/2022 19:33:48 Date Recorded Body mass index (BMI) Body weight Provider Name and Address Organization Details Last Updated DateTime 10/26/2022 28.3 kg/m2 50491.82 g David Tate [facility] IN [facility] 10/26/2022 19:33:52 Date Recorded Heart rate Provider Name an d Address Organization Details Last Updated DateTime 10/26/2022 103 /min David Harrisries [facility] IN [facility] 10/26/2022 19:34:11 Date Recorded Respiratory rate Provider Name a nd Address Organization Details Last Updated DateTime 10/26/2022 16 /min David Harrisries [facility] IN [facility] 10/26/2022 19:34:13 Date Recorded Oxygen saturation Oxygen saturation in Arterial blood by Pulse oximetry Provider Name and Address Organization Details Last Updated DateTime 10/26/2022 98 % 98 % David Harrisries [facility] [place] [facility] 10/26/2022 19:34:17 Date Recorded Body temperature Provider Name a nd Address Organization Details Last Updated DateTime 10/26/2022 98.1 [degF] David Tate [facility] 10/26/2022 19:34:26 Date Recorded Systolic blood pressure Diastolic blood pressure Provider Name and Address Organization Details Last Updated DateTime 06/28/2020 106 mm[Hg] 68 mm[Hg] Karen Baez RN [facility] 06/28/2020 08:49:47 Date Recorded Systolic blood pressure Diastolic blood pressure Provider Name and Address Organization Details Last Updated DateTime 07/19/2020 122 mm[Hg] 82 mm[Hg] Aye Luu [facility] 07/19/2020 14:30:52 Date Recorded Systolic blood pressure Diastolic blood pressure Provider Name and Address Organization Details Last Updated DateTime 07/28/2022 124 mm[Hg] 70 mm[Hg] Karen Norma [facility] 07/28/2022 16:21:58 Date Recorded Systolic blood pressure Diastolic blood pressure Provider Name and Address Organization Details Last Updated DateTime 10/17/2022 109 mm[Hg] 69 mm[Hg] Karen Trion [facility] 10/17/2022 11:22:40 Date Recorded Systolic blood pressure Diastolic blood pressure Provider Name and Address Organization Details Last Updated DateTime 10/26/2022 118 mm[Hg] 74 mm[Hg] David Tate [facility] 10/26/2022 19:34:07 Social History Question Answer Notes LastModified by Organizat ion Details LastModified Time Tobacco Smoking Status Former Smoker Not Available [employer] 07/28/2022 16:08:33 What Is Your Level Of Alcohol Consumption? None [email or web address] Information not available 07/28/2022 What Is Your Level Of Caffeine Consumption? Moderate [email or web address] Information not available 07/28/2022 What Type Of Diet Are You Following? REGULAR Information not available 06/28/2020 Which Illicit Or Recreational Drugs Have You Used? Denies Information not available 06/28/2020 Do You Or Have You Ever Used E-cigarettes Or Vape? Current User Of Electronic Cigarettes Information not available 07/28/2022 Education 12 Information no t available 06/28/2020 Have You Had A Fever And/or Symptoms Of A Lower Respiratory Illness (cough, Difficulty Breathing, Etc)? Yes Information not available 07/28/2022 Have You Had Any Of These Symptoms: Chills ,Headache, Fatigue, Muscle Or Body Aches , Sore Throat, New Loss Of Taste Or Smell, Nausea Or Vomiting, Or Diarrhea? Yes Information not available 07/28/2022 Have You Had A COVID-19 Vaccine In The Last 7 Days? No [email or web address] Information not available 07/28/2022 (If Yes To Covid Vaccine)- Which Vaccine? Moderna Information not available 07/28/2022 In The Past 10 Days, Have You Been Told You May Have COVID-19 Or Have Been Tested For COVID-19? No [email or web address] Information not available 07/28/2022 Marital Status Single Informatio n not available 06/28/2020 What Was The Date Of Your Most Recent Tobacco Screening? 10/17/2022 Information not available 10/17/2022 Do You Or Have You Ever Used Smokeless Tobacco? Never Used Smokeless Tobacco Information not available 06/28/2020 Do You Or Have You Ever Used Any Other Forms Of Tobacco Or Nicotine? Yes Information not available 07/28/2022 Sex: Female Functional Status None recorded. Mental Status None recorded. Family History Relationship Description Onset Age of this Age Resolved Age Notes LastModified by Organization Details LastModified Time Mother No current problems or disability alive, age 52 [email or web address] Not available 07/28/2022 16:08:31 Father No current problems or disability alive, age 52 [email or web address] Not available 07/28/2022 16:08:31 Daughter No current problems or disability alive, age 8 [email or web address] Not available 07/28/2022 16:08:31 Brother No current problems or disability alive, age 27 [email or web address] Not available 07/28/2022 16:08:31 Brother No current problems or disability [email or web address] Not available 07/28 16:08:31 Son Heart disease alive, age 5; hypopl astic left heart syndro me eadors Not available 06/28/2020 08:54:26 Medical History Condition Response fibromyalgia N lupus N gout N rheumatoid arthritis N osteoarthritis N other rheumatologic issue N immune system disorder N heart problems Y Gynecological HistoryNo gynecological history recorded. 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 Physical examinatio n is unremarkab le for joint swelling, synovitis or other evidence of active articular inflammati on. Possible inflammato ry arthritis as a clinical entity or part of autoimmune disease needs to be looked Eruption 876723320 R21 Disorder o f connective tissue 378745805 M35.8 (Arthritis , skin rashes, hair loss, fatigue). Patient has long-stand ing history of varied symptoms as indicated above primarily musculoske letal and mucocutane ous with episodic numbness and cardioresp iratory complaints and constituti onal symptoms. On physical examinatio n no finding consistent with active autoimmune disease. Possible autoimmune disease is a considerat ion. After discussing with the patient laboratory studies requested for further evaluation . 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 Mainly based on the history possible autoimmune disease has been looked into. No objective evidence of active disease on physical examinatio n and laboratory studies. Currently active autoimmune disease less likely. Laboratory results discussed with Mrs. Yip. Advised her to contact the office if develops new or worsening symptoms. Encouraged to see dermatolog ist if develops new skin rashes. 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 [id number] Tigre Arguello MD [facility] [address] [place] [address] [place] [address] [place] [address] 7 07/28/2022 16:08:28 07/28/2022 16:45:42 Bacterial upper respiratory infection [id number] A49.9 [id number] CARINA DOMINGUEZ PA-C [facility] [place] [address] 10/17/2022 10:37:29 10/17/2022 12:14:27 Influenza caused by Influenza A virus [id number] J09.X2 [id number] SANDRO ALEXANDRA NP [facility] [address] [place] [address] [place] [address] 10/26/2022 18:38:10 10/26/2022 20:26:14 Persistent cough [id number] R05.3 Suspected COVID-19 [id number] Z20.828 Bacterial infectious disease [id number] A48.8 Health Concerns Section Related Observation LastModified by Organization Detai ls LastModified Time None Recorded Concern Status LastModified by Organization Details LastModified Time None Recorded Advance Directives Directive None Recorded Payers Encounter Date Sequence Insurance Name Policy Number Policy Zuniga Covered Member ID Zuniga Member ID Guarantor Name 06/28/2020 1 [place] [id number] Haily Yip [id number] Yesenia Yip 07/19/2020 1 *SELF PAY* Ab igail Yip 07/28/2022 1 [facility] [place] [facility] (MEDICAID HMO) [id number] Yesenia R Yip [id number] Yesenia Yip 10/17/2022 1 [facility] [facility] [employer] [place] [employer] [place]MEDICAID HMO) [id number] Yesenia Yip [id number] Yesenia Yip 10/26/2022 1 [facility] [facility] [place]MEDICAID HMO) [id number] Yesenia Yip [id number] Yesenia Yip Notes Date Note Type Note Provider Name and Address Organization Details Recorded Time 06/28/2020 text/html Please also see consultation request office notes and laboratory results. Mrs. Yip comes referred by AYAN Barry for evaluation of possible autoimmune disease patient complaining of breathing difficulty joint pain and stiffness, increased hair loss, recurrent skin lesions and numbness of hands and feet. She is a 24-year-old lady from [place], [place] with medical history significant for cystinuria, recurrent nephrolithiasis status post multiple lithotripsy. Patient stated her problem has been going on for the last 5 years following the delivery of her son. Her fatigue progressively got worse. As per the patient her fatigue does not have much to do with level of activity. Patient also reported having mottling of her legs, fever, her face getting red, numbness of the toes and fingers, increased hair loss, breathing difficulty, tachycardia and abnormal laboratory studies in the past. Mainly because of her constellation of symptoms wanted to be checked by grip boss for possible autoimmune disease. She sees urologist periodically regarding her recurrent renal calculus and frequent visits to single corner cutter. No significant mucosal lesions, cecal or renal symptoms. Mrs. Yip reported having episodic joint pain mainly in the morning with stiffness of variable duration. No significant joint swelling. She sometimes has low back discomfort without radicular symptoms. She is 2 para 2. No history of DVT, amaurosis fugax, weakness of an extremity or other thrombotic episode. Laboratory results of 08/01/2019 showed stable CBC with differential count, amylase, lipase, iron study and thyroid panel. Normal ESR and CRP, RPR nonreactive, negative rheumatoid factor, CLAIMS SERVICE ADJUSTOR, [place], SSA, SSB and dsDNA. Normal folate, vitamin B12 and vitamin D levels. No known family history of inflammatory arthritis or other autoimmune disease. Her son is born with hypoplastic left ventricular syndrome Isidro Barahona MD [address], [address], [place], [address], [place] - [place] 07/10/2020 20:40:15 07/19/2020 text/html Mrs. Yip retu rns for a scheduled follow-up evaluation. This 25-year-old lady was initially seen on 06/28/2020 complaining breathing difficulty, joint pain and stiffness, increased hair loss, recurrent skin lesions and numbness of hands and feet. Laboratory results from initial visit including CBC with differential count, CMP and CRP were all normal. ESR 23 mm/hr (0? 2 0). Urinalysis showed moderate blood, protein and large leukocyte esterase with WBC 50? 1 00/hpf, RBC 10/25/hpf and the trace bacteria. Urine culture showed normal genital ivan. Negative rheumatoid factor and anti-CCP, specific autoantibodies and stable complements. On current visit Mrs. Yip reported experiencing episodic throbbing headache. No known precipitating factor. Patient also reported episodic knee pain without associated with swelling. No other joint pain, swelling, or recent skin rashes all mucosal lesions. Isidro Barahona MD [address], [address], [place], [address], [place] - [place] [facility] 07/29/2020 20:15:45 07/28/2022 text/html 19-year-old fema francisco presents urgent care complaining of sinus congestion and a cough. Does have history of fall allergies. Denies any fever chillsReview of system otherwise negativeIs of note that she did have to bury her 7-year-old son who had hypoplastic left heart syndrome who is waiting for heart transplantReview of system otherwise negative Tigre Arguello MD [address], [address], [place], [address], [place] - [place] 07/28/2022 16:40:13 10/17/2022 text/html 27 y/o female pr esents with cough, fever, chills, body aches and headache. CARINA DOMINGUEZ PA-C [address], [address], [place], [address], [place] [facility] 10/17/2022 12:12:37 10/26/2022 text/html 27-year-old luis manuel singh presents to clinic with spouse present. Reports persistent cough that has never resolved from her influenza strain a diagnosis at her visit here on 10/17/2022. Along with that, symptom, she is also experiencing fatigue, sweats, sore throat, subjective fever and bilateral ear pressure with bubbling sounds.Also experienced 1 day of diarrhea (now resolved).Denies nausea, vomiting, chest/back/abdominal pain, dyspnea,nasal congestion/drainage, exposure to known covid positive individuals SANDRO ALEXANDRA NP [address], [place], [address], [place] [facility] 10/26/2022 20:24:06 OBGyn Episode No OBEpisode recorded.
[2024-12-09 18:32] VITALS: BP 126/79; PULSE 73; RESP 18; TEMP 36.5; O2SAT 100
[2024-12-09 19:13] LABS: EDSTREPNEGPOS1 Negative (Negative)
--- NOTE | 2024-12-09 19:17 | ED_ITS ---
HPI - URI/Sore Throat General Chief Complaint: Upper Respiratory Infection Stated Complaint: strep symptoms Time Seen by Provider: 12/09/24 19:17 Source: patient, RN notes reviewed and old records reviewed Mode of arrival: ambulatory Limitations: no limitations History of Present Illness HPI Narrative: 29-year-old female presents to the [facility] with complaints of a sore throat. Patient has taken 5 doses of penicillin that she was prescribed by her primary care provider. Was not seen daughter was positive strep. Patient reports that she started with some sinus pressure and runny nose after starting penicillin. Onset (ago): day(s) (3) Treatments prior to arrival: antibiotics Related Data Home Medications ?Medication ?Instructions ?Recorded ?Confirmed ?Last Taken ?Type Essure See Rx Instructions .Route .COMPLEX 09/27/23 10/03/24 Unknown History alpha lipoic acid 200 mg tablet 1,200 mg PO DAILY 09/27/23 10/03/24 Unknown History Allergies Allergy/AdvReac Type Severity Reaction Status Date / Time ketorolac (From Toradol) AdvReac Intermediate Swelling Verified 12/09/24 18:45 Review of Systems Review of Systems: All systems reviewed & are unremarkable except as noted in HPI and below Constitutional: Constitutional: Reports no additional constitutional complaints ENT: Reports as per HPI and Reports sore throat Cardiovascular: Cardiovascular: Reports no additional cardiovascular complaints, Denies chest pain and Denies dyspnea Respiratory: Respiratory: Reports no additional respiratory complaints, Denies chest congestion, Denies cough and Denies dyspnea Musculoskeletal: Musculoskeletal: Reports no additional musculoskeletal complaints Integumentary/Breasts: Skin/Breast: Reports system reviewed and no additional complaints, except as docu PMFSH Past Medical History Medical History Heart failure Depression with anxiety Kidney stones Cystinuria Surgical History Surgical History History of removal of calculus of renal pelvis through percutaneous nephrostomy History of ureter stent History of cystoscopy Family History Family History Other Diabetes mellitus Family history of malignant neoplasm Hypertension Social History Social History Social History: Surrogate medical decision maker: VIRAJ Nazario (fianc?) or Radha Monique (grandmother). Code status: Full code. Years smoked: 2 Smoking status: Former smoker Tobacco type: e-cigarettes/vaping Second hand tobacco smoke exposure: No Alcohol intake: never Substance use: never Do You Feel Safe in your Home?: Yes Lack of Transportation: No Lack of Food: Sometimes True Current Housing: I Have Housing Concerned About Future Housing: No Difficulty Paying Gas/Electric Bills: No Difficulty Paying for Meds: No Currently Unemployed: No Education: Associate Degree Difficulty w/ Childcare or Family Care: No Additional living arrangements comments: Lives in [place] with baljinder and 12-year-old daughter. Spiritual care concerns: No Comments At the time of my signature, I reviewed and agree with the nursing past medical, surgical, social, and family history. There is no relevant family history pertinent to the patient complaint. Exam Const: General: cooperative, no acute distress, well developed, alert, tired appearing, uncomfortable and well nourished Nutritional Appearance: well nourished Orientation/consciousness: patient oriented x3 Limitations: no limitations HENMT: Head: normal to inspection Ears: hearing grossly normal bilaterally, external ears normal, TM's normal bilaterally, EAC's normal, mastoids normal and no periauricular adenopathy Mouth: Yes Normal oral and palatal mucosa present, Yes lip normal and Yes tongue normal Throat: posterior oropharynx normal, tonsils normal, uvula midline and no uvular edema Eyes: General: appearance normal, both eyes and all related structures Alignment and Position: alignment normal Neck: Neck: normal visual inspection, full ROM, no lymphadenopathy and no meningeal signs Chest: Chest palpation & inspection: normal inspection of the chest Resp: Effort & Inspection: normal respiratory effort and able to speak in complete sentences Auscultation: clear to auscultation bilaterally, no crackles, no rales, no rhonchi and no wheezes Cardio: Rate: regular rate Skin: General skin exam: normal color and no rashes or lesions noted Neuro: General: patient oriented x3, gait normal, moves all extremities and no meningeal signs Cognition (Neuro): normal cognition Speech: normal speech Gait exam (Neuro): Normal gait present Extrem: General: normal to inspection, full ROM, capillary refill normal and normal gait Psych: Appearance: grossly normal and well kempt Mental Status: mental status grossly normal Speech and movement: Normal speech and movement present and Clear speech present Affect: normal affect Attitude: cooperative Course Course Level of Care: Express Care Visit Vital Signs Vital signs: Vital Signs Temperature 97.7 F 12/09/24 18:32 Pulse Rate 73 12/09/24 18:32 Respiratory Rate 18 12/09/24 18:32 Blood Pressure 126/79 12/09/24 18:32 Pulse Oximetry 100 12/09/24 18:32 Oxygen Delivery Room Air 12/09/24 18:32 Temperature 97.7 F 12/09/24 18:32 Pulse Rate 73 12/09/24 18:32 Respiratory Rate 18 12/09/24 18:32 Blood Pressure 126/79 12/09/24 18:32 Pulse Oximetry 100 12/09/24 18:32 Oxygen Delivery Room Air 12/09/24 18:32 Reviewed MDM - URI/Sore Throat MDM Narrative Medical decision making narrative: Patient sitting in exam room. Nontoxic, vitals stable. Patient appears uncomfortable but no acute distress. Patient presents with a 3 day history of a sore throat, congestion. Patient attributed the congestion 2 taking penicillin. Most likely this is due to her influenza A virus Reports concern for strep throat, requesting just to get an antibiotic. Strep test is negative, will culture Exam not consistent with strep throat, and attempted to explain this to patient. Patient symptoms most likely viral. Patient became upset when trying no explained this to patient. Obtained the COVID and flu, patient walked out of clinic upset that she is not receiving antibiotic Patient left left clinic after test, called patient at 7:36 p.m. and updated her about positive influenza A. Some parts of this dictation were generated by voice recognition software and may contain typographical and/or grammatical inaccuracies. Differential Diagnosis Differential diagnosis: Likely upper respiratory infection, otitis media, sinu sitis, viral infection, bronchitis and influenza Lab Data Labs: Lab Results 12/09/24 12/09/24 Range/Units 19:11 19:33 POC Influenza A Ag Positive (Negative) POC Influenza B Ag Negative (Negative) POC SARS CoV-2 Ag Negative (Negative) POC Grp A Strep Screen Negative (Negative) Reviewed Critical Care Time Critical Care Time Critical Care Time: No Discharge Plan Discharge Clinical Impression: Influenza A Patient Disposition: Elopement After Seen by [facility] [place]: Stable Patient Language: Swedish Prescriptions: No Action alpha lipoic acid 200 mg Tablet 1,200 mg PO DAILY Essure See Rx Instructions .ROUTE .COMPLEX Rx Instructions: 1 implant intrauterinely Follow-up/Referrals: Tristan,Carmen Lion, DANNIELLE [Primary Care Provider] -
[2024-12-09 19:35] LABS: EDCOVIDSCREEN Negative (Negative); EDINFLUASCREEN Positive (Negative); EDINFLUBSCREEN Negative (Negative)
--- NOTE | 2024-12-09 19:46 | PC.NURSE ---
192- pt eloped after seeing provider. Pt stated to VISUAL COMMUNICATIONS INSTRUCTOR she was just her for a different antibiotic. Strep test came back negative. Influenza and covid test performed, and was running as pt eloped, influenza A came back positive, VISUAL COMMUNICATIONS INSTRUCTOR called and notified pt.
== END 2024-12-09 19:27 | disposition left against medical advice (07) ==
PROVIDERS: Emergency Provider Nurse Practitioner; PCP Nurse Practitioner
DX: J10.1 Influenza due to other identified influenza virus with other respiratory manifestations (principal); Z20.822 Contact with and (suspected) exposure to COVID-19; Z87.891 Personal history of nicotine dependence; I50.9 Heart failure, unspecified; Z96.0 Presence of urogenital implants
CPT/HCPCS: 87081; 87426; 87804; 87880; 99213; G0463

== ENCOUNTER 2024-12-14 09:42 | Outpatient (CLI) | payer BC, SELFPAY ==
--- NOTE | ~2024-12-14 | MMUS_ITS ---
EXAMINATION: MM diagnostic jun BI w miguel, US breast BI complete HISTORY: Palpable right breast lump . TECHNIQUE: Additional 3-D tomosynthesis images of the breasts were performed and synthetic 2-D images were generated. CAD analysis was submitted and interpreted. High resolution bilateral complete breas t ultrasound was performed. COMPARISON: Outside ultrasounds dated 12/16/2022 and 12/10/2022 BREAST PARENCHYMAL COMPOSITION: Dense: The breasts are extremely dense, which lowers the sensitivity of mammography. FINDINGS: MAMMOGRAPHIC FINDINGS: There is a large mass in the upper outer quadrant of the right breast corresponding to the area of pa lpable concern. There are no suspicious masses, calcifications or architectural distortion in the lef t breast to suggest malignancy. ULTRASOUND: Complete US of all 4 quadrants of the breast/s and retroareolar region was reviewed. Right breast: At 10-11 o'clock, 6 cm from the nipple there is an oval hypoechoic mass measuring 6.3 x 1.6 x 5.6 cm compared with 1.6 x 0.4 cm on 12/10/2022. Left breast: Normal heterogeneous echotexture without focal solid or cystic mass. IMPRESSION: 1. Significant enlargement of right breast mass measuring 6.3 x 1.6 x 5.6 cm. 2. Ultrasound-guided right breast biopsy recommended. BI-RADS category 4, suspicious findings. Reviewed, dictated and finalized at location B. DING TRADES TEACHER IMPRESSION: 1. Significant enlargement of right breast mass measuring 6.3 x 1.6 x 5.6 cm. 2. Ultrasound-guided right breast biopsy recommended. BI-RADS category 4, suspicious findings.
== END 2024-12-14 09:43 | disposition home or self-care (01) ==
LOC: MICIMG 09:46
PROVIDERS: PCP Nurse Practitioner; Visit Provider Nurse Practitioner
DX: N63.11 Unspecified lump in the right breast, upper outer quadrant (principal)
CPT/HCPCS: 76641; 77062; 77066; G0279